=== PATIENT | female | born 2000 | race Caucasian/White ===

== ENCOUNTER 2022-02-23 12:57 | Inpatient (IN) ==
[2022-02-23 13:43] LABS: Basophils # (auto) 0.05 K/uL (0-0.2); Basophils % (auto) 0.4 %; Hematocrit (blood only) 38.2 % (37-47); Hemoglobin 13.2 g/dL (12.0-16.0); Immature Granulocytes # (auto) 0.07 K/uL (0.00-0.02); Immature Granulocytes % (auto) 0.5 %; Lymphocytes # (auto) 1.19 K/uL (1.2-3.4); Lymphocytes % (auto) 8.5 %; Mean Corpuscular Hemoglobin 31.1 pg (25-34); Mean Corpuscular Hgb Conc 34.6 g/dL (32-36); Mean Corpuscular Volume 89.9 fL (80-100); Mean Platelet Volume 10.1 fL (7.4-10.4); Monocytes # (auto) 1.79 K/uL (0.11-0.59); Monocytes % (auto) 12.7 %; Neutrophils # (auto) 10.95 K/uL (1.4-6.5); Neutrophils % (auto) 77.9 %; Platelet Count 231 K/uL (130-400); RDW Coefficient of Variation 13.1 % (11.5-14.5); RDW Standard Deviation 42.7 fL (36.4-46.3); Red Blood Count 4.25 M/uL (4.2-5.4); White Blood Count 14.05 K/uL (4.8-10.8)
--- NOTE | 2022-02-23 13:44 | XRay Report ---
SINGLE VIEW CHEST CLINICAL HISTORY: Atypical chest pain. FINDINGS: An AP, portable, upright chest radiograph is obtained. No prior studies are available for c omparison at the time of dictation. The cardiomediastinal silhouette is unremarkable. The lungs and pleural spaces are clear. No pneumothorax is seen. The bony thorax is grossly intact. IMPRESSION: No active disease in the chest. ACT 112: Negative or not required by law. Electronically signed by: Tony Islas M.D. 02/23/2022 1:43 PM
--- NOTE | 2022-02-23 13:48 | Emergency Department Note ---
Impression & Plan Myocarditis, Cough, Upper respiratory infection, Adenovirus positive by PCR ED Provider Note Any bellyNAME: MORENA BARBER AGE: 21 SEX: F : 2000 ARRIVES VIA: Walk-In INFORMANT: Patient ED PROVIDER(S): Garret Reyes DO CHIEF COMPLAINT: cough and shortness of breath HPI: Patient is a 21-year-old female who presents to the ER for upper respiratory symptoms. She notes her symptoms started about 6 days ago. She admits to a cough and congestion. She has been coughing up blood. She does have a little bit of a runny nose and a sore throat. Pain nausea, vomiting, or diarrhea. No dysuria, urgency, or frequency. Her roommate just tested positive for Covid. She is vaccinated. No other exacerbating or remitting factors. ROS: See above HPI for pertinent positives & negatives. A total of 10 systems reviewed and were otherwise negative. PAST MEDICAL HISTORY:See Below PAST SURGICAL HISTORY:See Below FAMILY HISTORY:See Below SOCIAL HISTORY:See Below HOME MEDICATIONS:See Below ALLERGIES:See Below VITALS:See Below PHYSICAL EXAMINATION: GENERAL: Sitting up in bed, alert, well appearing, well nourished, no distress, non-toxic, persistent cough EYE EXAM: normal conjunctiva. OROPHARYNX: Exudates in bilateral posterior pharynx. No obvious abscess. White plaque over top of the tongue. NECK: supple, no nuchal rigidity, no adenopathy, non-tender LUNGS: Clear to auscultation. Normal chest wall mechanics HEART: no murmurs, S1 normal and S2 normal ABDOMEN: abdomen soft, non-tender, normo-active bowel sounds, no masses, no rebound or guarding. UPPER EXTREMITIES: upper extremities are grossly normal. LOWER EXTREMITIES: No pitting edema. Calves are equal bilateral NEURO EXAM: Normal sensorium, cranial nerves II-XII grossly intact, normal spee ch, no gross weakness of arms, no gross weakness of legs. MEDICAL DECISION MAKING: Patient is a 21-year-old female who presents to ER for upper respiratory symptoms. IV was established blood was obtained. Labs show mild leukocytosis of 14,000. No significant anemia. D-dimer was negative. BMP with mild hyponatremia and hypokalemia 3.2. LFTs bilirubin was unremarkable. Troponin was elevated at 1.4. Lipase was normal. Initial antigen Covid was obtained and was negative but once the positive troponin came back did repeat PCR as her roommate is positive for Covid. With the elevated troponin I do not feel that this is ischemic but favor likely myocarditis. Strep and mono were added on. Discussed with Dr. Constance Richard. She recommended bio fire. D/w Dr. Price from cardiology and they will follow the patient up as an inpatient. CTA of the chest showed no PEs, pleural effusions or large pericardial effusion. Strep and mono were neg. adenovirus was +. Triage Nursing notes reviewed. Limited review of prior medical records performed Vital Signs: reviewed and remarkable for tachy Differential diagnosis: Differential diagnoses includes but is not limited to pneumonia, bronchitis, COPD/Asthma exacerbation, pneumothorax, pulmonary embolism, congestive heart failure, acute coronary syndrome ER treatment provided: See below Diagnostics interpreted by me: ECG: Sinus rhythm rate 85 Normal axis No PVCs QTC 423 Cardiac Monitoring: An order was placed for continuous cardiac monitoring. The m onitor shows a rate of 82 with sinus rhythm. Laboratory studies: As stated above and show below. Imaging studies: CT angio of the chest was negative Portable AP upright 1 view the chest was unremarkable Consultation(s): Discussed with Constance Richard for further evaluation Discussed with cardiology Procedures: none Critical Care: None Past Med/Surg History Social History Smoking Status: Never smoker Preferred Language: Bulgarian Feels Safe at Home: Yes Allergies Allergies Allergy/AdvReac Type Severity Reaction Status Date / Time shellfish derived Allergy Severe Difficulty Verified 02/23/22 15:36 Breathing cat dander Allergy Mild Congested Verified 02/23/22 15:36 dog dander Allergy Mild Congested Verified 02/23/22 15:36 grass pollen Allergy Mild Congested Verified 02/23/22 15:36 tree and shrub pollen Allergy Mild Congested Verified 02/23/22 15:36 Home Meds Home Medications Medication Instructions Recorded Confirmed budesonide-formoterol HFA 160 2 puff INHALATION QAM 02/23/22 02/23/22 mcg-4.5 mcg/actuation aerosol inhaler cetirizine 10 mg tablet (Zyrtec) 10 mg PO DAILY 02/23/22 02/23/22 fluconazole 100 mg tablet 100 mg PO UD 02/23/22 02/23/22 isotretinoin 40 mg capsule 40 mg PO BID 02/23/22 02/23/22 (Claravis) montelukast 10 mg tablet 10 mg PO QPM 02/23/22 02/23/22 Results & Data (ED) Vital Signs Vital Signs - 24 hr 02/23/22 13:04 02/23/22 14:00 02/23/22 14:48 Temperature 36.2 C L Temperature Source Temporal Artery Scan Pulse Rate 105 H 90 Pulse Rate [Apical] 90 85 Pulse Rhythm Regular Pulse Strength Normal Respiratory Rate 20 18 18 Respiratory Effort / Characteristics Non-Labored Spontaneous Non-Labored Spontaneous Non-Labored Spontaneous Respiratory Depth Normal Normal Normal Respiratory Pattern Regular Regular Regular Blood Pressure 118/81 Blood Pressure [Right Arm] 124/78 124/78 Blood Pressure Mean 93 Blood Pressure Mean [Right Arm] 93 93 Blood Pressure Position Sitting Blood Pressure Position [Right Arm] Sitting Sitting Pulse Oximetry 96 96 97 Oxygen Delivery Method Room Air Room Air Room Air Sepsis Recent Fever Within 48 Hours No Sepsis New/Unexplained Change in Mental Status No Sepsis Action Taken by Nursing No Action Required 02/23/22 16:00 Temperature Temperature Source Pulse Rate Pulse Rate [Apical] 93 H Pulse Rhythm Pulse Strength Respiratory Rate 18 Respiratory Effort / Characteristics Non-Labored Spontaneous Respiratory Depth Normal Respiratory Pattern Regular Blood Pressure Blood Pressure [Right Arm] 124/78 Blood Pressure Mean Blood Pressure Mean [Right Arm] 93 Blood Pressure Position Blood Pressure Position [Right Arm] Sitting Pulse Oximetry 97 Oxygen Delivery Method Room Air Sepsis Recent Fever Within 48 Hours Sepsis New/Unexplained Change in Mental Status Sepsis Action Taken by Nursing Laboratory Data Result diagrams: 02/23/22 13:30 02/23/22 13:36 Lab Results 02/23/22 02/23/22 02/23/22 Range/Units 13:30 13:30 13:30 WBC 14.05 H (4.8-10.8) K/uL RBC 4.25 (4.2-5.4) M/uL Hgb 13.2 (12.0-16.0) g/dL Hct 38.2 (37-47) % MCV 89.9 (80-100) fL MCH 31.1 (25-34) pg MCHC 34.6 (32-36) g/dL RDW Std Deviation 42.7 (36.4-46.3) fL RDW Coeff of Javier 13.1 (11.5-14.5) % Plt Count 231 (130-400) K/uL MPV 10.1 (7.4-10.4) fL Immature Gran % (Auto) 0.5 % Neut % (Auto) 77.9 % Lymph % (Auto) 8.5 % [place] % (Auto) 12.7 % Eos % (Auto) 0.0 % Baso % (Auto) 0.4 % Neut # (Auto) 10.95 H (1.4-6.5) K/uL Lymph # (Auto) 1.19 L (1.2-3.4) K/uL [place] # (Auto) 1.79 H (0.11-0.59) K/uL Eos # (Auto) 0.00 (0-0.5) K/uL Baso # (Auto) 0.05 (0-0.2) K/uL Immature Gran # (Auto) 0.07 H (0.00-0.02) K/uL D-Dimer 400 (0-500) ug/L FEU Sodium (136-145) mmol/L Potassium (3.5-5.1) mmol/L Chloride (98-107) mmol/L Carbon Dioxide (21-32) mmol/L Anion Gap (3-11) BUN (6-23) mg/dl Creatinine (0.6-1.2) mg/dl Est Cr Clr Drug Dosing ml/min Est GFR ( Amer) ml/min Est GFR (Non-Af Amer) ml/min BUN/Creatinine Ratio (10-20) Glucose (70-99(Fasting)) mg/dl Calcium (8.5-10.1) mg/dl Total Bilirubin (0.2-1.0) mg/dl AST (13-39) U/L ALT (7-52) U/L Alkaline Phosphatase (34-104) U/L Troponin I (0-0.04) ng/ml Total Protein (6.0-8.3) gm/dl Albumin (3.4-5.0) gm/dl Globulin (2.5-4.0) gm/dl Albumin/Globulin Ratio (0.9-2) Lipase (11-82) U/L Adenovirus (PCR) (NotDetected) B. pertussis DNA (PCR) (NotDetected) B.parapertussis DNA PCR (NotDetected) C. pneumoniae DNA (PCR) (NotDetected) Coronavirus OC43 (PCR) (NotDetected) Coronavirus HKU1 (PCR) (NotDetected) Coronavirus 229E (PCR) (NotDetected) SARS-CoV-2 (PCR) (Negative) Coronavirus NL63 (PCR) (NotDetected) Monoscreen (Negative) Human Metapneumovir PCR (NotDetected) Influenza Type A (PCR) (Neg) Influenza Type B (PCR) (Neg) M. pneumoniae (PCR) (NotDetected) Parainfluenza 1 (PCR) (NotDetected) Parainfluenza 2 (PCR) (NotDetected) Parainfluenza 3 (PCR) (NotDetected) Parainfluenza 4 (PCR) (NotDetected) RSV (RT-PCR) (Neg) RSV (PCR) (NotDetected) Entero/Rhino (PCR) (NotDetected) SARS-CoV-2, RNA, NAAT NEGATIVE (NEGATIVE) Group A Strep (PCR) (NotDetected) 02/23/22 02/23/22 02/23/22 Range/Units 13:30 13:36 14:26 WBC (4.8-10.8) K/uL RBC (4.2-5.4) M/uL Hgb (12.0-16.0) g/dL Hct (37-47) % MCV (80-100) fL MCH (25-34) pg MCHC (32-36) g/dL RDW Std Deviation (36.4-46.3) fL RDW Coeff of Javier (11.5-14.5) % Plt Count (130-400) K/uL MPV (7.4-10.4) fL Immature Gran % (Auto) % Neut % (Auto) % Lymph % (Auto) % [place] % (Auto) % Eos % (Auto) % Baso % (Auto) % Neut # (Auto) (1.4-6.5) K/uL Lymph # (Auto) (1.2-3.4) K/uL [place] # (Auto) (0.11-0.59) K/uL Eos # (Auto) (0-0.5) K/uL Baso # (Auto) (0-0.2) K/uL Immature Gran # (Auto) (0.00-0.02) K/uL D-Dimer (0-500) ug/L FEU Sodium 132 L (136-145) mmol/L Potassium 3.2 L (3.5-5.1) mmol/L Chloride 92 L (98-107) mmol/L Carbon Dioxide 23 (21-32) mmol/L Anion Gap 17 H (3-11) BUN 9 (6-23) mg/dl Creatinine 0.79 (0.6-1.2) mg/dl Est Cr Clr Drug Dosing 111.0 ml/min Est GFR ( Amer) 124.9 ml/min Est GFR (Non-Af Amer) 107.8 ml/min BUN/Creatinine Ratio 11.4 (10-20) Glucose 101 H (70-99(Fasting)) mg/dl Calcium 9.6 (8.5-10.1) mg/dl Total Bilirubin 0.6 (0.2-1.0) mg/dl AST 28 (13-39) U/L ALT 21 (7-52) U/L Alkaline Phosphatase 36 (34-104) U/L Troponin I 1.39 H* (0-0.04) ng/ml Total Protein 8.8 H (6.0-8.3) gm/dl Albumin 4.6 (3.4-5.0) gm/dl Globulin 4.2 H (2.5-4.0) gm/dl Albumin/Globulin Ratio 1.1 (0.9-2) Lipase 30 (11-82) U/L Adenovirus (PCR) (NotDetected) B. pertussis DNA (PCR) (NotDetected) B.parapertussis DNA PCR (NotDetected) C. pneumoniae DNA (PCR) (NotDetected) Coronavirus OC43 (PCR) (NotDetected) Coronavirus HKU1 (PCR) (NotDetected) Coronavirus 229E (PCR) (NotDetected) SARS-CoV-2 (PCR) NEGATIVE (Negative) Coronavirus NL63 (PCR) (NotDetected) Monoscreen Negative (Negative) Human Metapneumovir PCR (NotDetected) Influenza Type A (PCR) Negative (Neg) Influenza Type B (PCR) Negative (Neg) M. pneumoniae (PCR) (NotDetected) Parainfluenza 1 (PCR) (NotDetected) Parainfluenza 2 (PCR) (NotDetected) Parainfluenza 3 (PCR) (NotDetected) Parainfluenza 4 (PCR) (NotDetected) RSV (RT-PCR) Negative (Neg) RSV (PCR) (NotDetected) Entero/Rhino (PCR) (NotDetected) SARS-CoV-2, RNA, NAAT (NEGATIVE) Group A Strep (PCR) (NotDetected) 02/23/22 02/23/22 Range/Units 14:26 15:09 WBC (4.8-10.8) K/uL RBC (4.2-5.4) M/uL Hgb (12.0-16.0) g/dL Hct (37-47) % MCV (80-100) fL MCH (25-34) pg MCHC (32-36) g/dL RDW Std Deviation (36.4-46.3) fL RDW Coeff of Javier (11.5-14.5) % Plt Count (130-400) K/uL MPV (7.4-10.4) fL Immature Gran % (Auto) % Neut % (Auto) % Lymph % (Auto) % [place] % (Auto) % Eos % (Auto) % Baso % (Auto) % Neut # (Auto) (1.4-6.5) K/uL Lymph # (Auto) (1.2-3.4) K/uL [place] # (Auto) (0.11-0.59) K/uL Eos # (Auto) (0-0.5) K/uL Baso # (Auto) (0-0.2) K/uL Immature Gran # (Auto) (0.00-0.02) K/uL D-Dimer (0-500) ug/L FEU Sodium (136-145) mmol/L Potassium (3.5-5.1) mmol/L Chloride (98-107) mmol/L Carbon Dioxide (21-32) mmol/L Anion Gap (3-11) BUN (6-23) mg/dl Creatinine (0.6-1.2) mg/dl Est Cr Clr Drug Dosing ml/min Est GFR ( Amer) ml/min Est GFR (Non-Af Amer) ml/min BUN/Creatinine Ratio (10-20) Glucose (70-99(Fasting)) mg/dl Calcium (8.5-10.1) mg/dl Total Bilirubin (0.2-1.0) mg/dl AST (13-39) U/L ALT (7-52) U/L Alkaline Phosphatase (34-104) U/L Troponin I (0-0.04) ng/ml Total Protein (6.0-8.3) gm/dl Albumin (3.4-5.0) gm/dl Globulin (2.5-4.0) gm/dl Albumin/Globulin Ratio (0.9-2) Lipase (11-82) U/L Adenovirus (PCR) DETECTED A* (NotDetected) B. pertussis DNA (PCR) Not Detected (NotDetected) B.parapertussis DNA PCR Not Detected (NotDetected) C. pneumoniae DNA (PCR) Not Detected (NotDetected) Coronavirus OC43 (PCR) Not Detected (NotDetected) Coronavirus HKU1 (PCR) Not Detected (NotDetected) Coronavirus 229E (PCR) Not Detected (NotDetected) SARS-CoV-2 (PCR) Not Detected (Negative) Coronavirus NL63 (PCR) Not Detected (NotDetected) Monoscreen (Negative) Human Metapneumovir PCR Not Detected (NotDetected) Influenza Type A (PCR) Not Detected (Neg) Influenza Type B (PCR) Not Detected (Neg) M. pneumoniae (PCR) Not Detected (NotDetected) Parainfluenza 1 (PCR) Not Detected (NotDetected) Parainfluenza 2 (PCR) Not Detected (NotDetected) Parainfluenza 3 (PCR) Not Detected (NotDetected) Parainfluenza 4 (PCR) Not Detected (NotDetected) RSV (RT-PCR) (Neg) RSV (PCR) Not Detected (NotDetected) Entero/Rhino (PCR) Not Detected (NotDetected) SARS-CoV-2, RNA, NAAT (NEGATIVE) Group A Strep (PCR) NOT DETECTED (NotDetected) Administered Medications Discontinued Medications Aspirin (Aspirin Chew 324 Mg) 324 mg PO NOW STA Stop: 02/23/22 15:01 Last Admin: 02/23/22 15:06 Dose: 324 mg Documented by: [id number] Ioversol (Optiray 320 125ml) 120 ml IV ONCE ONE Stop: 02/23/22 14:42 Last Admin: 02/23/22 14:42 Dose: 120 ml Documented by: [id number] Potassium Chloride (Potassium Chloride Crtab 20 Meq Tabcr) 40 meq PO NOW STA Stop: 02/23/22 15:01 Last Admin: 02/23/22 15:06 Dose: 40 meq Documented by: [id number] Imaging Data Radiologist's Impression: Chest X-Ray 02/23/22 13:22 SINGLE VIEW CHEST CLINICAL HISTORY: Atypical chest pain. FINDINGS: An AP, portable, upright chest radiograph is obtained. No prior studies are available for comparison at the time of dictation. The cardiomediastinal silhouette is unremarkable. The lungs and pleural spaces are clear. No pneumothorax is seen. The bony thorax is grossly intact. IMPRESSION: No active disease in the chest. ACT 112: Negative or not required by law. Electronically signed by: Tony Islas M.D. 02/23/2022 1:43 PM Chest CTA 02/23/22 14:12 CT ANGIOGRAM OF THE CHEST CLINICAL HISTORY: Atypical chest pain. COMPARISON STUDY: Chest x-ray dated 02/23/2022. TECHNIQUE: Following the IV administration of 120 cc of Optiray 320, CT angiogram of the chest was performed from the upper abdomen to the thoracic inlet utilizing the pulmonary embolus protocol. Images are reviewed in the axial, sagittal, and coronal planes. 3-D MIPS images are created and assessed. IV contrast was administered without complication. A dose lowering technique was utilized adhering to the principles of ALARA. CT DOSE: 225.15 mGy.cm FINDINGS: Thyroid: Imaged portions of the thyroid gland are normal in size and atten uation. Thoracic aorta: The thoracic aorta is normal in caliber and demonstrates standard 3-vessel arch anatomy. No dissection is seen. Pulmonary vasculature: The pulmonary trunk is normal in caliber. There are no filling defects identified in main, lobar, or segmental pulmonary branches to suggest pulmonary embolus. Heart: The heart is normal in size and without pericardial effusion. Lungs and pleural spaces: The lungs and pleural spaces are clear. Mediastinum: There is no mediastinal lymphadenopathy. Gertrudis: Clear. Axillae: There is no axillary lymphadenopathy. Upper abdomen: Partially visualized upper abdominal viscera is within normal limits. Skeletal structures: No lytic or blastic bony lesions are seen. IMPRESSION: 1. There is no evidence of pulmonary embolus in the main, lobar, or segmental pulmonary arteries. 2. The lungs are clear. ACT 112: Negative or not required by law. Electronically signed by: Tony Islas M.D. 02/23/2022 2:54 PM Discharge Plan Visit Data Chief Complaint: Cough Stated Complaint: COUGH UP BLOOD, RASH ALL OVER THE BODY ED Provider: Garret Reyes Discharge Problem: Myocarditis, Cough, Upper respiratory infection, Adenovirus positive by PCR Forms Stand Alone Forms: My [facility] Prescriptions Prescriptions: No Action isotretinoin [Claravis] 40 mg capsule 40 mg PO BID RF: 0 cetirizine [Zyrtec] 10 mg Tablet 10 mg PO DAILY RF: 0 montelukast 10 mg tablet 10 mg PO QPM RF: 0 budesonide-formoterol 160-4.5 mcg/actuation HFA aerosol inhaler 2 puff INHALATION QAM RF: 0 fluconazole 100 mg tablet 100 mg PO UD RF: 0 Referrals Referrals: PCP,NO [Primary Care Provider] -
[2022-02-23 13:54] LABS: D Dimer 400 ug/L FEU (0-500)
[2022-02-23 14:13] LABS: Troponin I 1.39 ng/ml (0-0.04)
[2022-02-23 14:28] LABS: Albumin Globulin Ratio 1.1 (0.9-2); Albumin Level 4.6 gm/dl (3.4-5.0); BUN Creatinine Ratio 11.4 (10-20); Bilirubin,Total 0.6 mg/dl (0.2-1.0); Calcium 9.6 mg/dl (8.5-10.1); Est GFR (African American) 124.9 ml/min; Est GFR (Non-African American) 107.8 ml/min; Globulin 4.2 gm/dl (2.5-4.0); Potassium 3.2 mmol/L (3.5-5.1); Total Protein 8.8 gm/dl (6.0-8.3)
[2022-02-23] MEDS ORDERED: OPTIRAY 320 125ml IV ONE (14:41)
--- NOTE | 2022-02-23 14:57 | CT Scan Report ---
CT ANGIOGRAM OF THE CHEST CLINICAL HISTORY: Atypical chest pain. COMPARISON STUDY: Chest x-ray dated 02/23/2022. TECHNIQUE: Following the IV administration of 120 cc of Optiray 320, CT angiogram of the chest was pe rformed from the upper abdomen to the thoracic inlet utilizing the pulmonary embolus protocol. Images are reviewed in the axial, sagittal, and coronal planes. 3-D MIPS images are created and assessed. I V contrast was administered without complication. A dose lowering technique was utilized adhering to the principles of ALARA. CT DOSE: 225.15 mGy.cm FINDINGS: Thyroid: Imaged portions of the thyroid gland are normal in size and attenuation. Thoracic aorta: The thoracic aorta is normal in caliber and demonstrates standard 3-vessel arch anato my. No dissection is seen. Pulmonary vasculature: The pulmonary trunk is normal in caliber. There are no filling defects identif ied in main, lobar, or segmental pulmonary branches to suggest pulmonary embolus. Heart: The heart is normal in size and without pericardial effusion. Lungs and pleural spaces: The lungs and pleural spaces are clear. Mediastinum: There is no mediastinal lymphadenopathy. Gertrudis: Clear. Axillae: There is no axillary lymphadenopathy. Upper abdomen: Partially visualized upper abdominal viscera is within normal limits. Skeletal structures: No lytic or blastic bony lesions are seen. IMPRESSION: 1. There is no evidence of pulmonary embolus in the main, lobar, or segmental pulmonary arteries. 2. The lungs are clear. ACT 112: Negative or not required by law. Electronically signed by: Tony Islas M.D. 02/23/2022 2:54 PM
[2022-02-23] MEDS ORDERED: ASPIRIN CHEW 324 MG PO STA (15:00)
[2022-02-23] MEDS ORDERED: POTASSIUM CHLORIDE CRTAB 20 MEQ TABCR PO STA (15:00)
[2022-02-23 15:19] LABS: Influenza A virus by PCR Negative (Neg); Influenza B virus by PCR Negative (Neg); RSV by PCR Negative (Neg); SARS CoV2 RNA(COVID-19) InHosp NEGATIVE (Negative)
[2022-02-23 16:32] LABS: Bordetella parapertussis PCR Not Detected (NotDetected); Bordetella pertussis PCR Not Detected (NotDetected); Chlamydia pneumoniae PCR Not Detected (NotDetected); Coronavirus 229E PCR Not Detected (NotDetected); Coronavirus CoV-2 (COVID19)PCR Not Detected (NotDetected); Coronavirus HKU1 PCR Not Detected (NotDetected); Coronavirus NL63 PCR Not Detected (NotDetected); Coronavirus OC43PCR Not Detected (NotDetected); Human Metapneumovirus PCR Not Detected (NotDetected); Influenza A PCR Not Detected (NotDetected); Influenza B PCR Not Detected (NotDetected); Mycoplasma pneumoniae PCR Not Detected (NotDetected); Parainfluenza Virus 1 PCR Not Detected (NotDetected); Parainfluenza Virus 2 PCR Not Detected (NotDetected); Parainfluenza Virus 3 PCR Not Detected (NotDetected); Parainfluenza Virus 4 PCR Not Detected (NotDetected); Respiratory Syncytial VirusPCR Not Detected (NotDetected); Rhinovirus/Enterovirus PCR Not Detected (NotDetected)
[2022-02-23 16:34] LABS: Adenovirus PCR DETECTED (NotDetected)
--- NOTE | 2022-02-23 17:29 | History & Physical Report ---
Date of Service February 23, 2022 Assessment & Plan (1) Myocarditis: Plan: Viral myocarditis likely- Troponin elevation - Adenovirus on viral PCR which is a common cause of myocarditis - Follow other cultures - Hold colchicine/steroids for now as symptoms minor -Check echo -Trend troponin -Consult cardiology -Consult infectious disease given adenovirus and recent Covid exposure with the possibility of Kawasaki and MIS-C as below (2) Adenovirus positive by PCR: Plan: As above (3) Leukocytosis: Plan: WBC 14 with elevated NLR- PCT 1.06 - Blood cultures x2 - UA pending - Will cover with Unasyn for possible EENT infection - Follow biomarkers and WBC -Check throat culture (4) Upper respiratory infection: Plan: COVID test negative x2 - Biofire with Adenovirus - will place on COVID precautions secondary to close contact - Likely re-test for Covid in morning - await further viral cultures - Nebs PRN - Continue Symbicort and CARIN (5) Hyponatremia: Plan: Likely related to decrease oral intake and food intake - LR at 125ml hour - Trend in morning very minor at 132 (6) Asthma: Plan: Well controlled with Symbicort- she rarely has to use her CARIN and has been woken up 1 time in the past year to use her CARIN (7) Rash and nonspecific skin eruption: Plan: Viral mediated likely. Is present on palms and soles as well as arms and upper thighs. With some erythema and edema of the fingers and toes Also with pharyngitis and possible strawberry tongue - no meningismus signs - EOS in CBC - NONE - MIS-C questionable- dx of exclusion as well -Also question Kawasaki disease although she has not had persistent fevers for greater than 5 days so seems unlikely -Check ESR, CRP -Checking echocardiogram as above for myocarditis which would also be useful in the setting of possible Kawasaki (8) Enlarged tonsils and adenoids: Plan: As above- throat culture pending, Monospot negative, group A strep rapid test negative Secondary to adenovirus She has been taking fluconazole as an outpatient for suspected thrush-oropharynx does not appear to have thrush but can continue nystatin swish and swallow for now History of Present Illness Primary Care Provider: NO PCP 21 YOF with past medical history of: Asthma, vape user, IUD, acne. Patient is student. She comes to the EMD today for 6 day history of fevers (2 days), sinus congestion, sore throat, myalgias, nausea with vomiting and loss of appetite. The patient has a room mate that is COVID (+). Patient states that on Thursday with fevers, sore throat and "bumps on her tongue". Patient states that she will get some thrush on her tongue when she is not washing her mouth out and vaping while using her inhalers or whenever she gets sick, however this proceeded with myalgias and worsening of her nausea and vomiting. Her throat pain is sharp and "fiery feeling" and she notes pain on the underside of her jaw where her lymph nodes are. She has been having nose-bleeds over the past 3 days as well and is coughing up clotted blood tinged sputum, she has not been able to produce any sputum for inspection. The patient also noted a rash on her hands and feet over the past 2-3 days that she thought was from her fevers. This rash does not itch nor burn. The rash is flat and patchy, does not feel warm, and blanches. The patient endorses that she has had her meningococcus vaccines, MMR, and Gardasil. Last sexual contact was over a month ago and she has an IUD in place for control. In the EMD the patient had routine CXR done, CTA of the chest performed, routine labs to include Troponin I. Her Troponin I was elevated to 1.39 with normal ECG and is consistent with a myocarditis, she will be admitted for monitoring for arrhythmia, following viral work-up, ECHO in the morning. Patient COVID test is negative with NAAT and PCR- will place her on isolation precautions still as she has close contact. [employer] viral panel sent, Throat culture pending, GAS negative, Monospot with reflex EBV panel pending. Allergies Allergy/AdvReac Type Severity Reaction Status Date / Time shellfish derived Allergy Severe Difficulty Verified 02/23/22 15:36 Breathing cat dander Allergy Mild Congested Verified 02/23/22 15:36 dog dander Allergy Mild Congested Verified 02/23/22 15:36 grass pollen Allergy Mild Congested Verified 02/23/22 15:36 tree and shrub pollen Allergy Mild Congested Verified 02/23/22 15:36 Home Medications Medication Instructions Recorded Confirmed Type budesonide-formoterol HFA 160 2 puff INHALATION QAM 02/23/22 02/23/22 History mcg-4.5 mcg/actuation aerosol inhaler cetirizine 10 mg tablet (Zyrtec) 10 mg PO DAILY 02/23/22 02/23/22 History fluconazole 100 mg tablet 100 mg PO UD 02/23/22 02/23/22 History isotretinoin 40 mg capsule 40 mg PO BID 02/23/22 02/23/22 History (Claravis) levonorgestrel (Kyleena) 1 device INTRAUTERINE 02/23/22 History montelukast 10 mg tablet 10 mg PO QPM 02/23/22 02/23/22 History Past Med/Surg History Medical History Asthma Uses control Vapes non-nicotine containing substance Surgical History (Updated 02/23/22 @ 20:37 by Constance Richard MD) No pertinent past surgical history Family History Other COPD (chronic obstructive pulmonary disease) Hypertension Lung cancer Social History Smoking Status: Former smoker Cigarettes Per Day: vapes; Second Hand Exposure: No; Do You Dip or Chew Tobacco: No; Tobacco Cessation Education Requested by Patient: Yes Hx Alcohol Use: No Hx Substance Use: No Preferred Language: Polish Communication Ability: Effective 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: No Beliefs That Will Affect Care: None Current Living Situation: Other Current Living Situation Comment: off campus apartment with roommate Other Information That Helps Us Care for You: No Feels Safe at Home: Yes Safety Concerns: Feels Safe At This Time Assistive Devices: None Review of Systems Review of Systems: REVIEW OF SYSTEMS: Constitutional: (+) fever, sweats or chills Eyes: No diplopia, no worsening or blurred vision ENT: normal hearing, no trouble swallowing Respiratory: (+) cough, sputum, dyspnea rest or on exertion Cardiovascular: (+) chest pain, no tightness or palpitations Abdomen: (+) n/v, no pain, diarrhea or constipation Musculoskeletal: (+) joint pain, NO calf pain, swelling Neurologic: No weakness, numbness/tingling, or balance problems Psychiatric: No anxiety or depression Skin:(+) rash Physical Exam Physical Exam: PHYSICAL EXAM: General: awake, alert, no apparent distress Head: Normocephalic, atraumatic ENT: PERRLA, EOMI, enlarged tonsils with exudates bilaterally, red tonsils and adenoids Neuro: AAO x 3, speech clear and appropriate, strength intact bilaterally 5/5, sensation intact and equal all extremities and dermatomes, no pronator drift Chest: equal rise and fall of the chest, no accessory muscle use, no heaves or thrills, Clear to auscultation, on room air, Cardiac: Regular rate and rhythm, telemetry reviewed, skin warm dry, cap refill <3 seconds, peripheral pulses +2 no JVD, no murmur, no edema GI: NABS x 4 quadrants, soft, nontender to palpation, no rebound, guarding or tenderness : Spontaneously voiding, no pain, no CVA tenderness, Psych: Normal mood and affect Skin: salmon colored flat patch with clear borders on palms of hands, soles of feet, tops of hands, wrist and shoudler, tops of feet and bilateral hips. Abodmen/trunk/back spared, face spared. Results & Data Results & Data ([facility]) Vital Signs (Past 12 Hours) Vital Signs Temp Pulse Pulse Resp BP BP Pulse Ox 02/23/22 16:00 93 H 18 124/78 97 02/23/22 14:48 85 18 124/78 97 02/23/22 14:00 90 90 18 124/78 96 02/23/22 13:04 36.2 C L 105 H 20 118/81 96 Laboratory Results Abnormal lab results 02/23/22 02/23/22 02/23/22 Range/Units 13:30 13:36 14:26 WBC 14.05 H (4.8-10.8) K/uL Neut # (Auto) 10.95 H (1.4-6.5) K/uL Lymph # (Auto) 1.19 L (1.2-3.4) K/uL [place] # (Auto) 1.79 H (0.11-0.59) K/uL Immature Gran # (Auto) 0.07 H (0.00-0.02) K/uL Sodium 132 L (136-145) mmol/L Potassium 3.2 L (3.5-5.1) mmol/L Chloride 92 L (98-107) mmol/L Anion Gap 17 H (3-11) Glucose 101 H (70-99(Fasting)) mg/dl Troponin I 1.39 H* (0-0.04) ng/ml Total Protein 8.8 H (6.0-8.3) gm/dl Globulin 4.2 H (2.5-4.0) gm/dl Adenovirus (PCR) DETECTED A* (NotDetected) Diagnostic Findings Chest X-Ray 02/23/22 13:22 SINGLE VIEW CHEST CLINICAL HISTORY: Atypical chest pain. FINDINGS: An AP, portable, upright chest radiograph is obtained. No prior studies are available for comparison at the time of dictation. The cardiomediastinal silhouette is unremarkable. The lungs and pleural spaces are clear. No pneumothorax is seen. The bony thorax is grossly intact. IMPRESSION: No active disease in the chest. ACT 112: Negative or not required by law. Electronically signed by: Tony Islas M.D. 02/23/2022 1:43 PM Chest CTA 02/23/22 14:12 CT ANGIOGRAM OF THE CHEST CLINICAL HISTORY: Atypical chest pain. COMPARISON STUDY: Chest x-ray dated 02/23/2022. TECHNIQUE: Following the IV administration of 120 cc of Optiray 320, CT angiogram of the chest was performed from the upper abdomen to the thoracic inlet utilizing the pulmonary embolus protocol. Images are reviewed in the axial, sagittal, and coronal planes. 3-D MIPS images are created and assessed. IV contrast was administered without complication. A dose lowering technique was utilized adhering to the principles of ALARA. CT DOSE: 225.15 mGy.cm FINDINGS: Thyroid: Imaged portions of the thyroid gland are normal in size and attenuation. Thoracic aorta: The thoracic aorta is normal in caliber and demonstrates standard 3-vessel arch anatomy. No dissection is seen. Pulmonary vasculature: The pulmonary trunk is normal in caliber. There are no filling defects identified in main, lobar, or segmental pulmonary branches to suggest pulmonary embolus. Heart: The heart is normal in size and without pericardial effusion. Lungs and pleural spaces: The lungs and pleural spaces are clear. Mediastinum: There is no mediastinal lymphadenopathy. Gertrudis: Clear. Axillae: There is no axillary lymphadenopathy. Upper abdomen: Partially visualized upper abdominal viscera is within normal limits. Skeletal structures: No lytic or blastic bony lesions are seen. IMPRESSION: 1. There is no evidence of pulmonary embolus in the main, lobar, or segmental pulmonary arteries. 2. The lungs are clear. ACT 112: Negative or not required by law. Electronically signed by: Tony Islas M.D. 02/23/2022 2:54 PM Medications Administered Home Medications budesonide-formoterol HFA 160 mcg-4.5 mcg/actuation aerosol inhaler 2 puff INHALATION QAM 02/23/22 [History Confirmed 02/23/22] cetirizine 10 mg tablet (Zyrtec) 10 mg PO DAILY 02/23/22 [History Confirmed 02/23/22] fluconazole 100 mg tablet 100 mg PO UD 02/23/22 [History Confirmed 02/23/22] isotretinoin 40 mg capsule (Claravis) 40 mg PO BID 02/23/22 [History Confirmed 02/23/22] levonorgestrel (Kyleena) 1 device INTRAUTERINE 02/23/22 [History] montelukast 10 mg tablet 10 mg PO QPM 02/23/22 [History Confirmed 02/23/22] Discontinued Medications Aspirin (Aspirin Chew 324 Mg) 324 mg PO NOW STA Stop: 02/23/22 15:01 Last Admin: 02/23/22 15:06 Dose: 324 mg Documented by: [id number] Ioversol (Optiray 320 125ml) 120 ml IV ONCE ONE Stop: 02/23/22 14:42 Last Admin: 02/23/22 14:42 Dose: 120 ml Documented by: [id number] Potassium Chloride (Potassium Chloride Crtab 20 Meq Tabcr) 40 meq PO NOW STA Stop: 02/23/22 15:01 Last Admin: 02/23/22 15:06 Dose: 40 meq Documented by: [id number] ECG Additional Comments: Normal sinus rhythm Normal ECG No previous ECGs available Code Status & VTE Plan Code Status CODE: FULL VTE: SCDs, ambulation VTE Prophylaxis Plan VTE Prophylaxis will be ordered: Yes Supervising Physician Co-Signing Physician Notes HANDLE ATTACHER Supervision note: I have personally seen and examined the patient and discussed and verified the blandon points of the history and physical along with the plan with LOS Snyder with the following exceptions and/or additions: This patient is a 21-year-old female with a 6-day history of fevers, sore throat, myalgias, cough, and development of rash. Denies any chest pain or shortness of breath. Her roommate currently has Covid-19 and tested positive the day before the patient started having symptoms. In the ER, she was found to have a positive troponin, normal EKG. Also found to have a rash on her hands, feet, arms, and upper thighs Tested negative for Covid-19 but positive for adenovirus. 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 With leukocytosis and elevated procalcitonin here-question if also superimposed bacterial infection Chest x-ray is negative Urinalysis not yet collected -Admit for further evaluation of the myocarditis-trend serial troponin till peaks, follow ECG Check echocardiogram, consult cardiology Hold off on starting colchicine at this time as per my discussion with cardiology unless becomes symptomatic or troponin elevates Adenovirus could explain the pharyngitis, the rash, and the myocarditis. There is a question of if she could have Kawasaki disease, incomplete Kawasaki disease, or MIS-C although her Covid-19 test is negative at this time. She does not have conjunctivitis or persistent fevers, but if developed persistent fevers, could consider Kawasaki disease and/or MIS C and would treat with IVIG -We will consult infectious disease Follow very closely Checking echocardiogram also PG Care Time/CCT Total # of Minutes Spent Total Time Spent with Patient: Total time spent is greater than 50% in coordination of care (as documented) at patient's floor/unit and/or counseling patient: Coding Level of Care Code 47122 Initial Inpt Care Lvl 3 Diagnoses Myocarditis I40.9 Chronicity: acute Myocarditis type: unspecified Upper respiratory infection J06.9 URI type: unspecified URI Adenovirus positive by PCR B34.0 Asthma J45.909 Rash and nonspecific skin eruption R21 Hyponatremia E87.1 Enlarged tonsils and adenoids J35.3 Leukocytosis D72.829 (1) Upper respiratory infection URI type: unspecified URI Qualified Code(s): J06.9 - Acute upper respiratory infection, unspecified (2) Myocarditis Chronicity: acute Myocarditis type: unspecified Qualified Code(s): I40.9 - Acute myocarditis, unspecified
[2022-02-23] MEDS ORDERED: ALBUTEROL HFA 8 GM INHALER INH PRN (19:39)
[2022-02-23] MEDS ORDERED: ONDANSETRON 4 MG OD TAB PO PRN (19:39)
[2022-02-23] MEDS ORDERED: ALBUT/IPRATROP 3MG/0.5MG NEB 3 ML VIAL NEB PRN (19:39)
[2022-02-23] MEDS: LACTATED RINGER'S 1,000 ML IV SCH (20:33)
[2022-02-23] MEDS: ACETAMINOPHEN 325 MG TAB PO PRN (20:34)
[2022-02-23] MEDS: NYSTATIN SUSP 500,000 U/5 ML UDC PO SCH (20:34)
[2022-02-23] MEDS: AMPICILLIN/SULBACTAM SOD 1,500 MG in 0.9 % SODIUM CHLORIDE 100 ML IV SCH (22:03)
[2022-02-23] MEDS: MONTELUKAST SODIUM 10 MG TABLET PO SCH (22:03)
[2022-02-23 22:09] LABS: Appearance Urine Clear (Clear); Bacteria Urine Automated 2+ (Negative); Bilirubin Urine Negative (Negative); Blood Urine 3+ (Negative); Color Urine Dark Yellow; Epithelial Cell Urine Auto >30 /lpf (0-5); Glucose Urine UA Negative (Negative); Ketones Urine 3+ (Negative); Leukocyte Esterase Urine Negative (Negative); Nitrite Urine Negative (Negative); Protein Urine 2+ (Negative); RBC Urine Automated >30 /hpf (0-4); Specific Gravity Urine > 1.045 (1.000-1.030); Urobilinogen Urine Negative (Negative); pH Urine 5.5 (4.5-7.5)
[2022-02-23 22:29] LABS: Renal Epithelial Cells Urine 0-5 /lpf (0-5)
--- NOTE | 2022-02-23 23:28 | Communication Note ---
Date of Service: February 23, 2022 Notified about UA result. Suggestive of infection. Assessed patient. She states she has had dysuria for a day. Appropriate to continue unasyn. Vitals: 37.9C temp noted. Exam: Viral exanthem at hands and forearms, slightly fading per patient. Faint red areas, not raised. She had this rash on both upper and lower extremities, sparing trunk. Not pruritic. Tonsils enlarged w/ mild exudate. + oropharyngeal erythema. Voice is not muffled. + right anterior cervical LAD. Plan: Continue unasyn for UTI. Follow clinically and follow labs. Strep culture pending. Lai go PGY2 night resident
[2022-02-24] MEDS: AMPICILLIN/SULBACTAM SOD 1,500 MG in 0.9 % SODIUM CHLORIDE 100 ML IV SCH ×4 (01:43→19:56)
[2022-02-24] MEDS: LACTATED RINGER'S 1,000 ML IV SCH ×3 (04:00→20:28)
[2022-02-24] MEDS: NYSTATIN SUSP 500,000 U/5 ML UDC PO SCH ×4 (08:15→20:24)
[2022-02-24] MEDS: CETIRIZINE HCL 10 MG TABLET PO SCH (08:15)
[2022-02-24] MEDS: FLUTICASONE/VILANTEROL 200/25MCG 14 PUFFS/INHALER INH SCH (08:16)
[2022-02-24] MEDS: guaiFENesin SUGAR FREE 100 MG/5 ML UDC PO PRN ×2 (09:18→20:24)
[2022-02-24 10:29] LABS: Basophils # (auto) 0.02 K/uL (0-0.2); Basophils % (auto) 0.2 %; Hematocrit (blood only) 33.7 % (37-47); Hemoglobin 11.5 g/dL (12.0-16.0); Immature Granulocytes # (auto) 0.04 K/uL (0.00-0.02); Immature Granulocytes % (auto) 0.5 %; Lymphocytes # (auto) 1.58 K/uL (1.2-3.4); Lymphocytes % (auto) 18.2 %; Mean Corpuscular Hemoglobin 30.7 pg (25-34); Mean Corpuscular Hgb Conc 34.1 g/dL (32-36); Mean Corpuscular Volume 90.1 fL (80-100); Mean Platelet Volume 9.4 fL (7.4-10.4); Monocytes % (auto) 11.5 %; Neutrophils # (auto) 6.05 K/uL (1.4-6.5); Neutrophils % (auto) 69.6 %; Platelet Count 217 K/uL (130-400); RDW Coefficient of Variation 13.2 % (11.5-14.5); RDW Standard Deviation 43.4 fL (36.4-46.3); Red Blood Count 3.74 M/uL (4.2-5.4); White Blood Count 8.69 K/uL (4.8-10.8)
[2022-02-24 10:50] LABS: Alanine Aminotransferase 24 U/L (7-52); Albumin Level 3.7 gm/dl (3.4-5.0); Alkaline Phosphatase 26 U/L (34-104); Anion Gap 6 (3-11); Aspartate Aminotransferase 60 U/L (13-39); BUN Creatinine Ratio 10.5 (10-20); Bilirubin Direct 0.2 mg/dl (0-0.2); Bilirubin,Total 0.4 mg/dl (0.2-1.0); Blood Urea Nitrogen 6 mg/dl (6-23); Calcium 8.7 mg/dl (8.5-10.1); Carbon Dioxide 31 mmol/L (21-32); Chloride 97 mmol/L (98-107); Creatinine Clr Calc Pharmacy 149.4 ml/min; Est GFR (African American) > 150.0 ml/min; Est GFR (Non-African American) 133.5 ml/min; Glucose 135 mg/dl (70-99(Fasting)); Magnesium 2.1 mg/dl (1.7-2.4); Sodium 134 mmol/L (136-145); Troponin I 9.68 ng/ml (0-0.04)
--- NOTE | 2022-02-24 12:07 | XCELERA ---
[id number] \\[id number]
[2022-02-24 12:26] LABS: Pregnancy Test, Urine Negative (Negative)
[2022-02-24] MEDS ORDERED: COLCHICINE 0.6 MG TAB PO ONE (14:50)
--- NOTE | 2022-02-24 15:00 | Hospitalist Progress Note ---
Date of Service February 24, 2022 Assessment & Plan (1) Myocarditis: Plan: Viral myocarditis likely responsible for her clinical presentation - Adenovirus on viral PCR which is a common cause of myocarditis - Follow other cultures - Placed on chlochicine and ASA by cardiology, appreciate recs -2 D ECHO was essentially normal, will repeat in a few days according to cardiology --Consult infectious disease given adenovirus and recent Covid exposure with the possibility of Kawasaki and MIS-C as below (2) Adenovirus positive by PCR: Plan: As above (3) Leukocytosis: Plan: now resolved (4) Upper respiratory infection: Plan: COVID test negative x2 - Biofire with Adenovirus - will place on COVID precautions secondary to close contact - Likely re-test for Covid in morning - await further viral cultures - Nebs PRN - Continue Symbicort and CARIN (5) Hyponatremia: Plan: Likely related to decrease oral intake and food intake - LR at 125ml hour - Trend in morning very minor at 132 (6) Asthma: Plan: Well controlled with Symbicort- she rarely has to use her CARIN and has been woken up 1 time in the past year to use her CARIN (7) Rash and nonspecific skin eruption: Plan: Viral mediated likely. Is present on palms and soles as well as arms and upper thighs. With some erythema and edema of the fingers and toes Also with pharyngitis and possible strawberry tongue - no meningismus signs - EOS in CBC - NONE - MIS-C questionable- dx of exclusion as well -Also question Kawasaki disease although she has not had persistent fevers for greater than 5 days so seems unlikely -Check ESR, CRP -Checking echocardiogram as above for myocarditis which would also be useful in the setting of possible Kawasaki (8) Enlarged tonsils and adenoids: Plan: As above- throat culture pending, Monospot negative, group A strep rapid test negative Secondary to adenovirus She has been taking fluconazole as an outpatient for suspected thrush-oropharynx does not appear to have thrush but can continue nystatin swish and swallow for now (9) Engages in vaping: Plan: patient was adviced to stop Admission and Anticipated Discharge Date Admission Date: February 23, 2022 Subjective patient seen and examined today, still coughing Review of Systems Review of Systems: All systems reviewed are negative, apart from the ones contained in the history. Physical Exam Physical Exam: The patient is awake, alert and oriented 3, well developed and well nourished, normocephalic and atraumatic, lying in bed and in no acute distress. HEENT--PERRL, EOMI, mucous membranes and oropharynx mildly dry Neck--supple. No JVD. No bruits. Thyroid normal, trachea midline, no adenopathy. Heart--normal S1 and S2. No murmurs, rubs or gallops. Lungs--clear bilaterally, no respiratory distress, no accessory muscle use. Abdomen--normal bowel sounds and soft. Mild epigastric and left sided abdominal pain Extremities--no cyanosis or clubbing. No edema. Dermatologic--normal skin turgor, normal color, no abnormal lymph nodes, no rash. Neurologic--cranial nerves II through XII grossly intact. Rheumatologic--normal range of motion. Psychiatric--normal affect. Results & Data Results & Data ([facility]) Vital Signs (Past 12 Hours) Vital Signs Temp Pulse Pulse Resp BP Pulse Ox 02/24/22 12:31 98.5 F 103 H 22 116/74 95 02/24/22 07:00 112 H 02/24/22 03:43 99.1 F 101 H 18 112/69 94 Laboratory Results Laboratory Results - last 24 hr 02/23/22 02/23/22 02/23/22 13:30 13:30 13:30 WBC RBC Hgb Hct MCV MCH MCHC RDW Std Deviation RDW Coeff of Javier Plt Count MPV Immature Gran % (Auto) Neut % (Auto) Lymph % (Auto) Howard % (Auto) Eos % (Auto) Baso % (Auto) Neut # (Auto) Lymph # (Auto) Howard # (Auto) Eos # (Auto) Baso # (Auto) Immature Gran # (Auto) ESR Sodium Potassium Chloride Carbon Dioxide Anion Gap BUN Creatinine Est Cr Clr Drug Dosing Est GFR ( Amer) Est GFR (Non-Af Amer) BUN/Creatinine Ratio Glucose Calcium Magnesium Total Bilirubin Direct Bilirubin AST ALT Alkaline Phosphatase Troponin I C-Reactive Protein Total Protein Albumin Procalcitonin 1.06 H Urine Color Urine Appearance Urine pH Ur Specific [place] Urine Protein Urine Glucose (UA) Urine Ketones Urine Blood Urine Nitrite Urine Bilirubin Urine Urobilinogen Ur Leukocyte Esterase Urine WBC (Auto) Urine RBC (Auto) U Hyaline Cast (Auto) U Epithel Cells (Auto) Urine Bacteria (Auto) Ur Renal Epithelial Cell Urine Yeast Urine Test Adenovirus (PCR) B. pertussis DNA (PCR) B.parapertussis DNA PCR C. pneumoniae DNA (PCR) Coronavirus OC43 (PCR) Coronavirus HKU1 (PCR) Coronavirus 229E (PCR) SARS-CoV-2 (PCR) Coronavirus NL63 (PCR) EBV Capsid Ag IgG Ab Pending EBV Capsid Ag IgM Ab Pending EBV EA Restrict+Diffuse Pending EBV Nuclear Antigen Ab Pending EBV Antibody Interp Pending Monoscreen Negative Human Metapneumovir PCR Influenza Type A (PCR) Influenza Type B (PCR) M. pneumoniae (PCR) Parainfluenza 1 (PCR) Parainfluenza 2 (PCR) Parainfluenza 3 (PCR) Parainfluenza 4 (PCR) RSV (RT-PCR) RSV (PCR) Entero/Rhino (PCR) Group A Strep (PCR) 02/23/22 02/23/22 02/23/22 13:30 13:36 14:26 WBC RBC Hgb Hct MCV MCH MCHC RDW Std Deviation RDW Coeff of Javier Plt Count MPV Immature Gran % (Auto) Neut % (Auto) Lymph % (Auto) Howard % (Auto) Eos % (Auto) Baso % (Auto) Neut # (Auto) Lymph # (Auto) Howard # (Auto) Eos # (Auto) Baso # (Auto) Immature Gran # (Auto) ESR 84 H Sodium Potassium Chloride Carbon Dioxide Anion Gap BUN Creatinine Est Cr Clr Drug Dosing Est GFR ( Amer) Est GFR (Non-Af Amer) BUN/Creatinine Ratio Glucose Calcium Magnesium Total Bilirubin Direct Bilirubin AST ALT Alkaline Phosphatase Troponin I C-Reactive Protein 15.82 H Total Protein Albumin Procalcitonin Urine Color Urine Appearance Urine pH Ur Specific [place] Urine Protein Urine Glucose (UA) Urine Ketones Urine Blood Urine Nitrite Urine Bilirubin Urine Urobilinogen Ur Leukocyte Esterase Urine WBC (Auto) Urine RBC (Auto) U Hyaline Cast (Auto) U Epithel Cells (Auto) Urine Bacteria (Auto) Ur Renal Epithelial Cell Urine Yeast Urine Test Adenovirus (PCR) B. pertussis DNA (PCR) B.parapertussis DNA PCR C. pneumoniae DNA (PCR) Coronavirus OC43 (PCR) Coronavirus HKU1 (PCR) Coronavirus 229E (PCR) SARS-CoV-2 (PCR) NEGATIVE Coronavirus NL63 (PCR) EBV Capsid Ag IgG Ab EBV Capsid Ag IgM Ab EBV EA Restrict+Diffuse EBV Nuclear Antigen Ab EBV Antibody Interp Monoscreen Human Metapneumovir PCR Influenza Type A (PCR) Negative Influenza Type B (PCR) Negative M. pneumoniae (PCR) Parainfluenza 1 (PCR) Parainfluenza 2 (PCR) Parainfluenza 3 (PCR) Parainfluenza 4 (PCR) RSV (RT-PCR) Negative RSV (PCR) Entero/Rhino (PCR) Group A Strep (PCR) 02/23/22 02/23/22 02/23/22 14:26 15:09 19:55 WBC RBC Hgb Hct MCV MCH MCHC RDW Std Deviation RDW Coeff of Javier Plt Count MPV Immature Gran % (Auto) Neut % (Auto) Lymph % (Auto) Howard % (Auto) Eos % (Auto) Baso % (Auto) Neut # (Auto) Lymph # (Auto) Howard # (Auto) Eos # (Auto) Baso # (Auto) Immature Gran # (Auto) ESR Sodium Potassium Chloride Carbon Dioxide Anion Gap BUN Creatinine Est Cr Clr Drug Dosing Est GFR ( Amer) Est GFR (Non-Af Amer) BUN/Creatinine Ratio Glucose Calcium Magnesium Total Bilirubin Direct Bilirubin AST ALT Alkaline Phosphatase Troponin I 1.14 H* C-Reactive Protein Total Protein Albumin Procalcitonin Urine Color Urine Appearance Urine pH Ur Specific [place] Urine Protein Urine Glucose (UA) Urine Ketones Urine Blood Urine Nitrite Urine Bilirubin Urine Urobilinogen Ur Leukocyte Esterase Urine WBC (Auto) Urine RBC (Auto) U Hyaline Cast (Auto) U Epithel Cells (Auto) Urine Bacteria (Auto) Ur Renal Epithelial Cell Urine Yeast Urine Test Adenovirus (PCR) DETECTED A* B. pertussis DNA (PCR) Not Detected B.parapertussis DNA PCR Not Detected C. pneumoniae DNA (PCR) Not Detected Coronavirus OC43 (PCR) Not Detected Coronavirus HKU1 (PCR) Not Detected Coronavirus 229E (PCR) Not Detected SARS-CoV-2 (PCR) Not Detected Coronavirus NL63 (PCR) Not Detected EBV Capsid Ag IgG Ab EBV Capsid Ag IgM Ab EBV EA Restrict+Diffuse EBV Nuclear Antigen Ab EBV Antibody Interp Monoscreen Human Metapneumovir PCR Not Detected Influenza Type A (PCR) Not Detected Influenza Type B (PCR) Not Detected M. pneumoniae (PCR) Not Detected Parainfluenza 1 (PCR) Not Detected Parainfluenza 2 (PCR) Not Detected Parainfluenza 3 (PCR) Not Detected Parainfluenza 4 (PCR) Not Detected RSV (RT-PCR) RSV (PCR) Not Detected Entero/Rhino (PCR) Not Detected Group A Strep (PCR) NOT DETECTED 02/23/22 02/24/22 02/24/22 21:25 10:06 10:06 WBC 8.69 RBC 3.74 L Hgb 11.5 L Hct 33.7 L MCV 90.1 MCH 30.7 MCHC 34.1 RDW Std Deviation 43.4 RDW Coeff of Javier 13.2 Plt Count 217 MPV 9.4 Immature Gran % (Auto) 0.5 Neut % (Auto) 69.6 Lymph % (Auto) 18.2 Howard % (Auto) 11.5 Eos % (Auto) 0.0 Baso % (Auto) 0.2 Neut # (Auto) 6.05 Lymph # (Auto) 1.58 Howard # (Auto) 1.00 H Eos # (Auto) 0.00 Baso # (Auto) 0.02 Immature Gran # (Auto) 0.04 H ESR Sodium 134 L Potassium 4.0 D Chloride 97 L Carbon Dioxide 31 Anion Gap 6 BUN 6 Creatinine 0.57 L Est Cr Clr Drug Dosing 149.4 Est GFR ( Amer) > 150.0 Est GFR (Non-Af Amer) 133.5 BUN/Creatinine Ratio 10.5 Glucose 135 H Calcium 8.7 Magnesium 2.1 Total Bilirubin 0.4 Direct Bilirubin 0.2 AST 60 H ALT 24 Alkaline Phosphatase 26 L Troponin I 9.68 H* C-Reactive Protein Total Protein 7.0 D Albumin 3.7 Procalcitonin Urine Color Dark Yellow Urine Appearance Clear Urine pH 5.5 Ur Specific [place] > 1.045 H Urine Protein 2+ H Urine Glucose (UA) Negative Urine Ketones 3+ H Urine Blood 3+ H Urine Nitrite Negative Urine Bilirubin Negative Urine Urobilinogen Negative Ur Leukocyte Esterase Negative Urine WBC (Auto) 10-30 H Urine RBC (Auto) >30 H U Hyaline Cast (Auto) 5-10 H U Epithel Cells (Auto) >30 H Urine Bacteria (Auto) 2+ H Ur Renal Epithelial Cell 0-5 Urine Yeast Present A Urine Test Adenovirus (PCR) B. pertussis DNA (PCR) B.parapertussis DNA PCR C. pneumoniae DNA (PCR) Coronavirus OC43 (PCR) Coronavirus HKU1 (PCR) Coronavirus 229E (PCR) SARS-CoV-2 (PCR) Coronavirus NL63 (PCR) EBV Capsid Ag IgG Ab EBV Capsid Ag IgM Ab EBV EA Restrict+Diffuse EBV Nuclear Antigen Ab EBV Antibody Interp Monoscreen Human Metapneumovir PCR Influenza Type A (PCR) Influenza Type B (PCR) M. pneumoniae (PCR) Parainfluenza 1 (PCR) Parainfluenza 2 (PCR) Parainfluenza 3 (PCR) Parainfluenza 4 (PCR) RSV (RT-PCR) RSV (PCR) Entero/Rhino (PCR) Group A Strep (PCR) 02/24/22 02/24/22 10:06 Unknown WBC RBC Hgb Hct MCV MCH MCHC RDW Std Deviation RDW Coeff of Javier Plt Count MPV Immature Gran % (Auto) Neut % (Auto) Lymph % (Auto) Howard % (Auto) Eos % (Auto) Baso % (Auto) Neut # (Auto) Lymph # (Auto) Howard # (Auto) Eos # (Auto) Baso # (Auto) Immature Gran # (Auto) ESR Sodium Potassium Chloride Carbon Dioxide Anion Gap BUN Creatinine Est Cr Clr Drug Dosing Est GFR ( Amer) Est GFR (Non-Af Amer) BUN/Creatinine Ratio Glucose Calcium Magnesium Total Bilirubin Direct Bilirubin AST ALT Alkaline Phosphatase Troponin I C-Reactive Protein Total Protein Albumin Procalcitonin 0.76 H Urine Color Urine Appearance Urine pH Ur Specific [place] Urine Protein Urine Glucose (UA) Urine Ketones Urine Blood Urine Nitrite Urine Bilirubin Urine Urobilinogen Ur Leukocyte Esterase Urine WBC (Auto) Urine RBC (Auto) U Hyaline Cast (Auto) U Epithel Cells (Auto) Urine Bacteria (Auto) Ur Renal Epithelial Cell Urine Yeast Urine Test Negative Adenovirus (PCR) B. pertussis DNA (PCR) B.parapertussis DNA PCR C. pneumoniae DNA (PCR) Coronavirus OC43 (PCR) Coronavirus HKU1 (PCR) Coronavirus 229E (PCR) SARS-CoV-2 (PCR) Coronavirus NL63 (PCR) EBV Capsid Ag IgG Ab EBV Capsid Ag IgM Ab EBV EA Restrict+Diffuse EBV Nuclear Antigen Ab EBV Antibody Interp Monoscreen Human Metapneumovir PCR Influenza Type A (PCR) Influenza Type B (PCR) M. pneumoniae (PCR) Parainfluenza 1 (PCR) Parainfluenza 2 (PCR) Parainfluenza 3 (PCR) Parainfluenza 4 (PCR) RSV (RT-PCR) RSV (PCR) Entero/Rhino (PCR) Group A Strep (PCR) PG Care Time/CCT Total # of Minutes Spent Total Time Spent with Patient: Total time spent is greater than 50% in coordination of care (as documented) at patient's floor/unit and/or counseling patient: Coding Level of Care Code 12833 Subseq Hosp Care Lvl 2 Diagnoses Myocarditis I40.9 Chronicity: acute Myocarditis type: unspecified Adenovirus positive by PCR B34.0 Leukocytosis D72.829 Upper respiratory infection J06.9 URI type: unspecified URI Hyponatremia E87.1 Asthma J45.909 Rash and nonspecific skin eruption R21 Enlarged tonsils and adenoids J35.3 Engages in vaping Z72.89 Time Spent (min) 35 (1) Myocarditis Chronicity: acute Myocarditis type: unspecified Qualified Code(s): I40.9 - Acute myocarditis, unspecified (2) Upper respiratory infection URI type: unspecified URI Qualified Code(s): J06.9 - Acute upper respiratory infection, unspecified
--- NOTE | 2022-02-24 15:07 | Cardiology Consultation ---
Date of Consultation February 24, 2022 Assessment & Plan (1) Acute myopericarditis: (2) Adenovirus positive by PCR: (3) Hyponatremia: (4) Sinus tachycardia: (5) Engages in vaping: ASSESSMENT/PLAN: 1. Acute myopericarditis: We discussed the diagnosis. Elevated troponins and chest discomfort highly suggestive of pericardial inflammation. Due to the pain, recommend treatment with aspirin 325 mg twice daily, which can be discontinue if pain subsides and then used on an as-needed basis. Start colchicine 0.6 mg p.o. once daily and would continue for a 3 month course to help reduce risk of recurrence. Fortunately, LV systolic function was normal on echo. Recommend repeating limited echo to evaluate wall motion and LV systolic function prior to discharge. Could consider cardiac MRI, especially if LV systolic dysfunction occurs, but otherwise it would not be expected to alter ma nagement. Cardiac MRI is not available at this facility but could be arranged if needed. Ordered troponin to ensure peak. Recommend avoiding exercise, other than walking, for 3 months. 2. Sinus tachycardia: Likely due to her active infection. Continue telemetry to monitor for arrhythmia, especially in the setting of myocardial injury. No specific treatment necessary for sinus tachycardia at this point. She remains asymptomatic in this regard. She also was likely hypovolemic on presentation based on her history with GI fluid loss, decreased oral intake, and orthostatic symptoms. She has received IV fluids and now tolerating oral intake. She appears more euvolemic currently. 3. Vaping: Recommended that she stop vaping. She seems dedicated to cessation. 4. Hyponatremia: Improving. Likely due to her underlying illness. Defer to hospitalist team. 5. Fever/Adenovirus positive/positive throat culture/possible UTI: As per primary service. She has tested negative for COVID-19 thus far but had recent contact in the form of her roommate who tested positive for COVID-19. Infectious disease consultation is pending. Defer to ID and hospitalist service. Currently on antibiotics per hospitalist. Also discussed with hospitalist epistaxis/hemoptysis, which was reported by patient. 6. Disposition: Cardiology will continue to follow. Discussed case via telephone with primary hospitalist, Dr. Markham. Thank you for allowing me to participate in the care of your patient. Please call for any other questions or concerns. Sincerely, Tio Veronica M.D. History of Present Illness Reason for Consultation: Myocarditis Requesting Physician: Dr. Richard Attending Physician: Pro Markham MD History of Present Illness Ms. Mckeon is a very pleasant 21-year-old female with a history significant for asthma. She was admitted on 02/23/2022 after feeling ill for approximately 1 week. She has been experiencing fevers, sore throat, nausea, vomiting, diarrhea, congestion, and cough with bloody sputum. She has been experiencing orthostatic symptoms when getting up from a seated or supine position. She has not been eating much but was trying to keep up with fluids. She also had a rash which has subsided. She states that her sore throat is more significant today than has been and she has noted a swollen lymph node on the right side of her neck just beneath the jawline. She also has been experiencing a pain across her chest which is worse while laying supine, improves while sitting upright, and also pleuritic in nature. During our conversation, she denied any chest discomfort however upon deep inspiration, the chest pain would recur. She denies shortness of breath, orthopnea, palpitations, syncope, melena, hematochezia, or hematuria. She has been experiencing dysuria but states that she has had issues with recurrent UTI in the past. Her roommate has tested positive with COVID-19 infection, although testing for her has been negative in that regard. She was found to have leukocytosis on presentation, hyponatremia, elevated troponin initially 1.39 before trending slightly downward and then increasing to 9.68 this morning, elevated procalcitonin, adenovirus noted on PCR, and group G beta strep on throat culture. Although some of her symptoms have improved as she is no longer vomiting and states that today is the first day that she has not had a fever since onset, her throat pain has worsened. Her father joined in via speaker phone near the end of our visit and mentioned that she has had 2 similar episodes recently in the past year or so. He also stated that lung issues run in the family, although no significant cardiac issues. Review of systems: As above. Review of systems otherwise negative/unremarkable. Family history: No known premature CAD. There has been pulmonary issues within her family. Social history: She vapes. No significant alcohol or drug abuse. 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 Her mother and father (interactive media marketing specialist) live in [place]. She is not and has no children. Her father participated at the end of today's visit via speaker phone. Allergies Allergy/AdvReac Type Severity Reaction Status Date / Time shellfish derived Allergy Severe Difficulty Verified 02/23/22 15:36 Breathing cat dander Allergy Mild Congested Verified 02/23/22 15:36 dog dander Allergy Mild Congested Verified 02/23/22 15:36 grass pollen Allergy Mild Congested Verified 02/23/22 15:36 tree and shrub pollen Allergy Mild Congested Verified 02/23/22 15:36 Home Medications Medication Instructions Recorded Confirmed Type budesonide-formoterol HFA 160 2 puff INHALATION QAM 02/23/22 02/23/22 History mcg-4.5 mcg/actuation aerosol inhaler cetirizine 10 mg tablet (Zyrtec) 10 mg PO DAILY 02/23/22 02/23/22 History fluconazole 100 mg tablet 100 mg PO UD 02/23/22 02/23/22 History isotretinoin 40 mg capsule 40 mg PO BID 02/23/22 02/23/22 History (Claravis) levonorgestrel (Kyleena) 1 device INTRAUTERINE 02/23/22 History montelukast 10 mg tablet 10 mg PO QPM 02/23/22 02/23/22 History Patient History Medical History Asthma Uses control Vapes non-nicotine containing substance Surgical History (Updated 02/23/22 @ 20:37 by Constance Richard MD) No pertinent past surgical history Family History Other COPD (chronic obstructive pulmonary disease) Hypertension Lung cancer Social History Smoking Status: Former smoker Cigarettes Per Day: vapes; Second Hand Exposure: No; Do You Dip or Chew Tobacco: No; Tobacco Cessation Education Requested by Patient: Yes Hx Alcohol Use: No Hx Substance Use: No Preferred Language: Spanish Communication Ability: Effective Pta Required: No Beliefs That Will Affect Care: None Current Living Situation: Other Current Living Situation Comment: off campus apartment with roommate Other Information That Helps Us Care for You: No Feels Safe at Home: Yes Safety Concerns: Feels Safe At This Time Assistive Devices: None Physical Exam Physical Exam: Gen.: No acute distress. Alert and oriented. HEENT: Anicteric sclera. Neck: No JVD. No bruits. Normal carotid upstrokes bilaterally. Lymphadenopathy noted right neck, just below the jawline. Cardiac: PMI was nondisplaced. No ventricular heave. Regular. Heart rate near 100 beats per minute. Normal S1-S2. No murmurs, rubs, or gallops. Pulmonary: Clear to auscultation bilaterally without wheezes, rales, or rhonchi. Abdomen: Soft, nontender, nondistended, with normoactive bowel sounds. No bruits noted. Extremities: 2+ radial pulses bilaterally. 2+ posterior tibialis pulses bilaterally. No edema or cyanosis. Psychiatric: Affect appears appropriate. Chest: Nontender to palpation. Results & Data ([facility]) Vital Signs (Past 12 Hours) Vital Signs Temp Pulse Pulse Resp BP Pulse Ox 02/24/22 12:31 36.9 C 103 H 22 116/74 95 02/24/22 07:00 112 H 02/24/22 03:43 37.3 C 101 H 18 112/69 94 Laboratory Results Laboratory Results - last 24 hr 02/23/22 02/23/22 02/23/22 13:30 13:30 13:30 WBC RBC Hgb Hct MCV MCH MCHC RDW Std Deviation RDW Coeff of Javier Plt Count MPV Immature Gran % (Auto) Neut % (Auto) Lymph % (Auto) Deuel % (Auto) Eos % (Auto) Baso % (Auto) Neut # (Auto) Lymph # (Auto) Deuel # (Auto) Eos # (Auto) Baso # (Auto) Immature Gran # (Auto) ESR Sodium Potassium Chloride Carbon Dioxide Anion Gap BUN Creatinine Est Cr Clr Drug Dosing Est GFR ( Amer) Est GFR (Non-Af Amer) BUN/Creatinine Ratio Glucose Calcium Magnesium Total Bilirubin Direct Bilirubin AST ALT Alkaline Phosphatase Troponin I C-Reactive Protein Total Protein Albumin Procalcitonin 1.06 H Urine Color Urine Appearance Urine pH Ur Specific [place] Urine Protein Urine Glucose (UA) Urine Ketones Urine Blood Urine Nitrite Urine Bilirubin Urine Urobilinogen Ur Leukocyte Esterase Urine WBC (Auto) Urine RBC (Auto) U Hyaline Cast (Auto) U Epithel Cells (Auto) Urine Bacteria (Auto) Ur Renal Epithelial Cell Urine Yeast Urine Test Adenovirus (PCR) B. pertussis DNA (PCR) B.parapertussis DNA PCR C. pneumoniae DNA (PCR) Coronavirus OC43 (PCR) Coronavirus HKU1 (PCR) Coronavirus 229E (PCR) SARS-CoV-2 (PCR) Coronavirus NL63 (PCR) EBV Capsid Ag IgG Ab Pending EBV Capsid Ag IgM Ab Pending EBV EA Restrict+Diffuse Pending EBV Nuclear Antigen Ab Pending EBV Antibody Interp Pending Monoscreen Negative Human Metapneumovir PCR Influenza Type A (PCR) Influenza Type B (PCR) M. pneumoniae (PCR) Parainfluenza 1 (PCR) Parainfluenza 2 (PCR) Parainfluenza 3 (PCR) Parainfluenza 4 (PCR) RSV (RT-PCR) RSV (PCR) Entero/Rhino (PCR) Group A Strep (PCR) 02/23/22 02/23/22 02/23/22 13:30 13:36 14:26 WBC RBC Hgb Hct MCV MCH MCHC RDW Std Deviation RDW Coeff of Javier Plt Count MPV Immature Gran % (Auto) Neut % (Auto) Lymph % (Auto) Deuel % (Auto) Eos % (Auto) Baso % (Auto) Neut # (Auto) Lymph # (Auto) Deuel # (Auto) Eos # (Auto) Baso # (Auto) Immature Gran # (Auto) ESR 84 H Sodium Potassium Chloride Carbon Dioxide Anion Gap BUN Creatinine Est Cr Clr Drug Dosing Est GFR ( Amer) Est GFR (Non-Af Amer) BUN/Creatinine Ratio Glucose Calcium Magnesium Total Bilirubin Direct Bilirubin AST ALT Alkaline Phosphatase Troponin I C-Reactive Protein 15.82 H Total Protein Albumin Procalcitonin Urine Color Urine Appearance Urine pH Ur Specific [place] Urine Protein Urine Glucose (UA) Urine Ketones Urine Blood Urine Nitrite Urine Bilirubin Urine Urobilinogen Ur Leukocyte Esterase Urine WBC (Auto) Urine RBC (Auto) U Hyaline Cast (Auto) U Epithel Cells (Auto) Urine Bacteria (Auto) Ur Renal Epithelial Cell Urine Yeast Urine Test Adenovirus (PCR) B. pertussis DNA (PCR) B.parapertussis DNA PCR C. pneumoniae DNA (PCR) Coronavirus OC43 (PCR) Coronavirus HKU1 (PCR) Coronavirus 229E (PCR) SARS-CoV-2 (PCR) NEGATIVE Coronavirus NL63 (PCR) EBV Capsid Ag IgG Ab EBV Capsid Ag IgM Ab EBV EA Restrict+Diffuse EBV Nuclear Antigen Ab EBV Antibody Interp Monoscreen Human Metapneumovir PCR Influenza Type A (PCR) Negative Influenza Type B (PCR) Negative M. pneumoniae (PCR) Parainfluenza 1 (PCR) Parainfluenza 2 (PCR) Parainfluenza 3 (PCR) Parainfluenza 4 (PCR) RSV (RT-PCR) Negative RSV (PCR) Entero/Rhino (PCR) Group A Strep (PCR) 02/23/22 02/23/22 02/23/22 14:26 15:09 19:55 WBC RBC Hgb Hct MCV MCH MCHC RDW Std Deviation RDW Coeff of Javier Plt Count MPV Immature Gran % (Auto) Neut % (Auto) Lymph % (Auto) Deuel % (Auto) Eos % (Auto) Baso % (Auto) Neut # (Auto) Lymph # (Auto) Deuel # (Auto) Eos # (Auto) Baso # (Auto) Immature Gran # (Auto) ESR Sodium Potassium Chloride Carbon Dioxide Anion Gap BUN Creatinine Est Cr Clr Drug Dosing Est GFR ( Amer) Est GFR (Non-Af Amer) BUN/Creatinine Ratio Glucose Calcium Magnesium Total Bilirubin Direct Bilirubin AST ALT Alkaline Phosphatase Troponin I 1.14 H* C-Reactive Protein Total Protein Albumin Procalcitonin Urine Color Urine Appearance Urine pH Ur Specific [place] Urine Protein Urine Glucose (UA) Urine Ketones Urine Blood Urine Nitrite Urine Bilirubin Urine Urobilinogen Ur Leukocyte Esterase Urine WBC (Auto) Urine RBC (Auto) U Hyaline Cast (Auto) U Epithel Cells (Auto) Urine Bacteria (Auto) Ur Renal Epithelial Cell Urine Yeast Urine Test Adenovirus (PCR) DETECTED A* B. pertussis DNA (PCR) Not Detected B.parapertussis DNA PCR Not Detected C. pneumoniae DNA (PCR) Not Detected Coronavirus OC43 (PCR) Not Detected Coronavirus HKU1 (PCR) Not Detected Coronavirus 229E (PCR) Not Detected SARS-CoV-2 (PCR) Not Detected Coronavirus NL63 (PCR) Not Detected EBV Capsid Ag IgG Ab EBV Capsid Ag IgM Ab EBV EA Restrict+Diffuse EBV Nuclear Antigen Ab EBV Antibody Interp Monoscreen Human Metapneumovir PCR Not Detected Influenza Type A (PCR) Not Detected Influenza Type B (PCR) Not Detected M. pneumoniae (PCR) Not Detected Parainfluenza 1 (PCR) Not Detected Parainfluenza 2 (PCR) Not Detected Parainfluenza 3 (PCR) Not Detected Parainfluenza 4 (PCR) Not Detected RSV (RT-PCR) RSV (PCR) Not Detected Entero/Rhino (PCR) Not Detected Group A Strep (PCR) NOT DETECTED 02/23/22 02/24/22 02/24/22 21:25 10:06 10:06 WBC 8.69 RBC 3.74 L Hgb 11.5 L Hct 33.7 L MCV 90.1 MCH 30.7 MCHC 34.1 RDW Std Deviation 43.4 RDW Coeff of Javier 13.2 Plt Count 217 MPV 9.4 Immature Gran % (Auto) 0.5 Neut % (Auto) 69.6 Lymph % (Auto) 18.2 Deuel % (Auto) 11.5 Eos % (Auto) 0.0 Baso % (Auto) 0.2 Neut # (Auto) 6.05 Lymph # (Auto) 1.58 Deuel # (Auto) 1.00 H Eos # (Auto) 0.00 Baso # (Auto) 0.02 Immature Gran # (Auto) 0.04 H ESR Sodium 134 L Potassium 4.0 D Chloride 97 L Carbon Dioxide 31 Anion Gap 6 BUN 6 Creatinine 0.57 L Est Cr Clr Drug Dosing 149.4 Est GFR ( Amer) > 150.0 Est GFR (Non-Af Amer) 133.5 BUN/Creatinine Ratio 10.5 Glucose 135 H Calcium 8.7 Magnesium 2.1 Total Bilirubin 0.4 Direct Bilirubin 0.2 AST 60 H ALT 24 Alkaline Phosphatase 26 L Troponin I 9.68 H* C-Reactive Protein Total Protein 7.0 D Albumin 3.7 Procalcitonin Urine Color Dark Yellow Urine Appearance Clear Urine pH 5.5 Ur Specific [place] > 1.045 H Urine Protein 2+ H Urine Glucose (UA) Negative Urine Ketones 3+ H Urine Blood 3+ H Urine Nitrite Negative Urine Bilirubin Negative Urine Urobilinogen Negative Ur Leukocyte Esterase Negative Urine WBC (Auto) 10-30 H Urine RBC (Auto) >30 H U Hyaline Cast (Auto) 5-10 H U Epithel Cells (Auto) >30 H Urine Bacteria (Auto) 2+ H Ur Renal Epithelial Cell 0-5 Urine Yeast Present A Urine Test Adenovirus (PCR) B. pertussis DNA (PCR) B.parapertussis DNA PCR C. pneumoniae DNA (PCR) Coronavirus OC43 (PCR) Coronavirus HKU1 (PCR) Coronavirus 229E (PCR) SARS-CoV-2 (PCR) Coronavirus NL63 (PCR) EBV Capsid Ag IgG Ab EBV Capsid Ag IgM Ab EBV EA Restrict+Diffuse EBV Nuclear Antigen Ab EBV Antibody Interp Monoscreen Human Metapneumovir PCR Influenza Type A (PCR) Influenza Type B (PCR) M. pneumoniae (PCR) Parainfluenza 1 (PCR) Parainfluenza 2 (PCR) Parainfluenza 3 (PCR) Parainfluenza 4 (PCR) RSV (RT-PCR) RSV (PCR) Entero/Rhino (PCR) Group A Strep (PCR) 02/24/22 02/24/22 10:06 Unknown WBC RBC Hgb Hct MCV MCH MCHC RDW Std Deviation RDW Coeff of Javier Plt Count MPV Immature Gran % (Auto) Neut % (Auto) Lymph % (Auto) [place] % (Auto) Eos % (Auto) Baso % (Auto) Neut # (Auto) Lymph # (Auto) Deuel # (Auto) Eos # (Auto) Baso # (Auto) Immature Gran # (Auto) ESR Sodium Potassium Chloride Carbon Dioxide Anion Gap BUN Creatinine Est Cr Clr Drug Dosing Est GFR ( Amer) Est GFR (Non-Af Amer) BUN/Creatinine Ratio Glucose Calcium Magnesium Total Bilirubin Direct Bilirubin AST ALT Alkaline Phosphatase Troponin I C-Reactive Protein Total Protein Albumin Procalcitonin 0.76 H Urine Color Urine Appearance Urine pH Ur Specific [place] Urine Protein Urine Glucose (UA) Urine Ketones Urine Blood Urine Nitrite Urine Bilirubin Urine Urobilinogen Ur Leukocyte Esterase Urine WBC (Auto) Urine RBC (Auto) U Hyaline Cast (Auto) U Epithel Cells (Auto) Urine Bacteria (Auto) Ur Renal Epithelial Cell Urine Yeast Urine Test Negative Adenovirus (PCR) B. pertussis DNA (PCR) B.parapertussis DNA PCR C. pneumoniae DNA (PCR) Coronavirus OC43 (PCR) Coronavirus HKU1 (PCR) Coronavirus 229E (PCR) SARS-CoV-2 (PCR) Coronavirus NL63 (PCR) EBV Capsid Ag IgG Ab EBV Capsid Ag IgM Ab EBV EA Restrict+Diffuse EBV Nuclear Antigen Ab EBV Antibody Interp Monoscreen Human Metapneumovir PCR Influenza Type A (PCR) Influenza Type B (PCR) M. pneumoniae (PCR) Parainfluenza 1 (PCR) Parainfluenza 2 (PCR) Parainfluenza 3 (PCR) Parainfluenza 4 (PCR) RSV (RT-PCR) RSV (PCR) Entero/Rhino (PCR) Group A Strep (PCR) Diagnostic Findings CTA chest 02/23/2022: No PE per Radiology. Clear lungs per Radiology. Thoracic aorta normal caliber. No dissection noted. Telemetry personally reviewed: Sinus with sinus tachycardia. Echo 02/24/2022: Normal LV size, wall motion, systolic function. EF 55-60%. No significant diastolic dysfunction. No significant valvular abnormalities. RVSP 23. ECGs personally reviewed: ECG 02/23/2022: Sinus 85 beats per minute. Medications Administered Current Inpatient Medications Acetaminophen (Acetaminophen 325 Mg Tab) 650 mg PO Q4H PRN PRN Reason: Pain or Fever Stop: 03/25/22 19:38 Last Admin: 02/23/22 20:34 Dose: 650 mg Documented by: Albuterol (Albut/Ipratrop 3mg/0.5mg Neb 3 Ml Vial) 3 ml NEB Q4R PRN; Protocol PRN Reason: wheeze/dyspnea Stop: 03/25/22 19:38 Albuterol (Albuterol Hfa 8 Gm Inhaler) 2 puffs INH Q6 PRN PRN Reason: wheeze/dyspnea Stop: 03/25/22 19:38 Aspirin (Aspirin 325 Mg Ectab) 325 mg PO BID [facility] Stop: 03/26/22 20:59 Cetirizine HCl (Cetirizine Hcl 10 Mg Tablet) 10 mg PO DAILY [facility] Stop: 03/26/22 08:59 Last Admin: 02/24/22 08:15 Dose: 10 mg Documented by: Colchicine (Colchicine 0.6 Mg Tab) 0.6 mg PO QAM [facility] Stop: 03/27/22 08:59 Fluticasone/Vilanterol (Fluticasone/Vilanterol 200/25mcg 14 Puffs/Inhaler) 1 puffs INH QAM CLAUDE; Protocol Stop: 03/26/22 08:59 Last Admin: 02/24/22 08:16 Dose: Not Given Documented by: Guaifenesin (Guaifenesin Sugar Free 100 Mg/5 Ml Udc) 100 mg PO Q6H PRN PRN Reason: Cough Stop: 03/26/22 08:15 Last Admin: 02/24/22 09:18 Dose: 100 mg Documented by: Lactated Ringer's (Lr) 1,000 mls @ 125 mls/hr IV .Q8H [facility] Stop: 03/25/22 19:38 Last Admin: 02/24/22 12:28 Dose: 125 mls/hr Documented by: Ampicillin Sodium/Sulbactam Sodium 1,500 mg/ Sodium Chloride 104 mls @ 200 mls/hr IV Q6H [facility]; Protocol Stop: 03/05/22 19:59 Last Admin: 02/24/22 14:29 Dose: 200 mls/hr Documented by: Montelukast Sodium (Montelukast Sodium 10 Mg Tablet) 10 mg PO QPM [facility] Stop: 03/25/22 20:59 Last Admin: 02/23/22 22:03 Dose: 10 mg Documented by: Nystatin (Nystatin Susp 500,000 U/5 Ml Udc) 5 ml PO QID [facility] Stop: 03/05/22 20:59 Last Admin: 02/24/22 12:29 Dose: 5 ml Documented by: Ondansetron HCl (Ondansetron 4 Mg Od Tab) 4 mg PO Q4H PRN PRN Reason: Nausea And Vomiting Stop: 03/25/22 19:38 PG Care Time/CCT Total # of Minutes Spent Total Time Spent with Patient: Total time spent is greater than 50% in coordination of care (as documented) at patient's floor/unit and/or counseling patient: Coding Level of Care Code 74031 Inpt Consult Level 4 Diagnoses Acute myopericarditis I30.9 Adenovirus positive by PCR B34.0 Hyponatremia E87.1 Sinus tachycardia R00.0 Engages in vaping Z72.89
[2022-02-24] MEDS: ASPIRIN 325 MG ECTAB PO SCH (20:24)
[2022-02-24] MEDS: MONTELUKAST SODIUM 10 MG TABLET PO SCH (20:24)
[2022-02-24] MEDS: ACETAMINOPHEN 325 MG TAB PO PRN (20:24)
[2022-02-25] MEDS: AMPICILLIN/SULBACTAM SOD 1,500 MG in 0.9 % SODIUM CHLORIDE 100 ML IV SCH ×4 (02:42→20:19)
[2022-02-25] MEDS: LACTATED RINGER'S 1,000 ML IV SCH (04:57)
--- NOTE | 2022-02-25 05:50 | Electrocardiogram Report ---
Test Reason : Blood Pressure : / mmHG Vent. Rate : 085 BPM Atrial Rate : 085 BPM P-R Int : 136 ms QRS Dur : 090 ms QT Int : 356 ms P-R-T Axes : 036 087 043 degrees QTc Int : 423 ms Poor data quality, interpretation may be adversely affected Normal sinus rhythm Normal ECG No previous ECGs available Confirmed by Dom Veronica ([id number]) on 02/25/2022 5:50:06 AM Referred By: Confirmed By:Dom Veronica
[2022-02-25] MEDS: ASPIRIN 325 MG ECTAB PO SCH ×2 (08:03→20:22)
[2022-02-25] MEDS: COLCHICINE 0.6 MG TAB PO SCH (08:04)
[2022-02-25] MEDS: NYSTATIN SUSP 500,000 U/5 ML UDC PO SCH ×4 (08:04→20:21)
[2022-02-25] MEDS: CETIRIZINE HCL 10 MG TABLET PO SCH (08:04)
[2022-02-25] MEDS: FLUTICASONE/VILANTEROL 200/25MCG 14 PUFFS/INHALER INH SCH (08:05)
--- NOTE | 2022-02-25 08:20 | Pulmonary Consultation ---
Date of Consultation February 25, 2022 Assessment & Plan (1) Engages in vaping: (2) Hemoptysis: (3) Asthma: CT chest 02/23/2022 personally reviewed: No pulmonary infiltrate or nodule No mediastinal lymphadenopathy --Hemoptysis The etiology is most likely from constant coughing Etiology of cough could be adenovirus/group B strep pharyngitis There is no anatomical abnormality appreciated on the CT chest when it comes to pulmonary Continue with antibiotics for strep pharyngitis COVID-19 PCR negative x2 Symptomatic management to suppress the cough which will eventually decrease hemoptysis Recommend guaifenesin-DM [id number] for the time being. The patient is still complaining of significant cough then would recommend guaifenesin-codeine [id number] --Asthma On Symbicort 2 puffs once a day in the morning, montelukast and antihistamine at home Continue with Breo while the patient is in the hospital --Vaping Advised to quit Plan: Guaifenesin-DM [id number], consider guaifenesin-codeine if cough still persists No indication for steroids right now. Continue with Breo. Please note the above document was generated using voice recognition software. It may contain grammatical, syntax or spelling errors.Any formal questions or concerns about the content, text or information contained within the body of this dictation should be directly addressed to the provider for clarification. History of Present Illness Attending Physician: Pro Markham MD History of Present Illness 21-year-old female presented to the hospital with complaints of fevers and chest pain. Was found to have myocarditis Past medical history: Asthma Plan we will consult because of hemoptysis At the time of examination patient said that she has been having coughing for the last for 5 days. She will bring her blood. Which has decreased in amount compared to before. She is still coughing. Her cough comes in bouts. Her chest pain is getting better since coming to the hospital. There is no positional change to her chest pain Has been afebrile since last 24 hours. Complains of mild headache. No blurry vision No nausea or vomiting. Good appetite. Social history: Non-smoker, does vape Allergies Allergy/AdvReac Type Severity Reaction Status Date / Time shellfish derived Allergy Severe Difficulty Verified 02/23/22 15:36 Breathing cat dander Allergy Mild Congested Verified 02/23/22 15:36 dog dander Allergy Mild Congested Verified 02/23/22 15:36 grass pollen Allergy Mild Congested Verified 02/23/22 15:36 tree and shrub pollen Allergy Mild Congested Verified 02/23/22 15:36 Home Medications Medication Instructions Recorded Confirmed Type budesonide-formoterol HFA 160 2 puff INHALATION QAM 02/23/22 02/23/22 History mcg-4.5 mcg/actuation aerosol inhaler cetirizine 10 mg tablet (Zyrtec) 10 mg PO DAILY 02/23/22 02/23/22 History fluconazole 100 mg tablet 100 mg PO UD 02/23/22 02/23/22 History isotretinoin 40 mg capsule 40 mg PO BID 02/23/22 02/23/22 History (Claravis) levonorgestrel (Kyleena) 1 device INTRAUTERINE 02/23/22 History montelukast 10 mg tablet 10 mg PO QPM 02/23/22 02/23/22 History Patient History Medical History Asthma Uses control Vapes non-nicotine containing substance Surgical History (Updated 02/23/22 @ 20:37 by Constance Richard MD) No pertinent past surgical history Family History Other COPD (chronic obstructive pulmonary disease) Hypertension Lung cancer Social History Smoking Status: Former smoker Cigarettes Per Day: vapes; Second Hand Exposure: No; Do You Dip or Chew Tobacco: No; Tobacco Cessation Education Requested by Patient: Yes Hx Alcohol Use: No Hx Substance Use: No Preferred Language: Cameroonian Communication Ability: Effective Automatic Glove Turner And Former Required: No Beliefs That Will Affect Care: None Current Living Situation: Other Current Living Situation Comment: off campus apartment with roommate Other Information That Helps Us Care for You: No Feels Safe at Home: Yes Safety Concerns: Feels Safe At This Time Assistive Devices: None Review of Systems Review of Systems: All systems reviewed & are unremarkable except as noted in HPI & below Physical Exam Physical Exam: Constitutional: No acute distress HEENT: EOMI, PERRLA, conjunctival injection Respiratory system: Good air entry bilaterally, no rhonchi, no crackles, minimal expiratory wheeze CVS: S1-S2 positive, no murmurs or gallops Abdomen: Soft, nontender, nondistended, positive bowel sounds x4 Extremities: +2 pulses bilaterally radialis/ dorsalis pedis, no cyanosis, no edema Neuro: Awake alert oriented x3 Psych: Normal mood and affect G/U: No [place] Skin: no rashes, warm and dry Lymphatic: no cervical or axillary lymphadenopathy Results & Data Results & Data ([facility]) Vital Signs (Past 12 Hours) Vital Signs Temp Pulse Pulse Resp BP Pulse Ox 02/25/22 07:52 36.8 C 93 H 18 95/61 L 97 02/25/22 07:00 76 02/25/22 02:36 36.4 C L 66 16 113/68 98 02/25/22 00:02 37.0 C 77 18 102/70 96 02/24/22 22:18 78 Laboratory Results 02/24/22 10:06 02/24/22 10:06 PG Care Time/CCT Total # of Minutes Spent Total Time Spent with Patient: Total time spent is greater than 50% in coordination of care (as documented) at patient's floor/unit and/or counseling patient: [place] [address] Initial Inpt Care Lvl 3 Patient Type New Diagnoses Engages in vaping Z72.89 Hemoptysis R04.2 Asthma J45.909
[2022-02-25 08:42] LABS: Basophils # (auto) 0.03 K/uL (0-0.2); Basophils % (auto) 0.5 %; Eosinophils # (auto) 0.07 K/uL (0-0.5); Eosinophils % (auto) 1.1 %; Hematocrit (blood only) 35.5 % (37-47); Hemoglobin 12.1 g/dL (12.0-16.0); Immature Granulocytes # (auto) 0.05 K/uL (0.00-0.02); Immature Granulocytes % (auto) 0.8 %; Lymphocytes # (auto) 1.59 K/uL (1.2-3.4); Lymphocytes % (auto) 23.9 %; Mean Corpuscular Hemoglobin 31.1 pg (25-34); Mean Corpuscular Hgb Conc 34.1 g/dL (32-36); Mean Corpuscular Volume 91.3 fL (80-100); Monocytes # (auto) 0.69 K/uL (0.11-0.59); Monocytes % (auto) 10.4 %; Neutrophils # (auto) 4.23 K/uL (1.4-6.5); Neutrophils % (auto) 63.3 %; Platelet Count 237 K/uL (130-400); RDW Coefficient of Variation 13.5 % (11.5-14.5); Red Blood Count 3.89 M/uL (4.2-5.4); White Blood Count 6.66 K/uL (4.8-10.8)
[2022-02-25] MEDS: guaiFENesin/DEXTROM SYRUP 200MG/20MG 10ML UDC PO SCH ×3 (10:13→20:21)
[2022-02-25 10:17] LABS: Anion Gap 6 (3-11); BUN Creatinine Ratio 8.9 (10-20); Blood Urea Nitrogen 5 mg/dl (6-23); Calcium 9.1 mg/dl (8.5-10.1); Carbon Dioxide 33 mmol/L (21-32); Chloride 100 mmol/L (98-107); Creatinine Clr Calc Pharmacy 151.8 ml/min; Est GFR (African American) > 150.0 ml/min; Est GFR (Non-African American) 134.2 ml/min; Glucose 124 mg/dl (70-99(Fasting)); Magnesium 2.2 mg/dl (1.7-2.4); Potassium 3.9 mmol/L (3.5-5.1); Sodium 139 mmol/L (136-145)
--- NOTE | 2022-02-25 12:23 | Hospitalist Progress Note ---
Date of Service February 25, 2022 Assessment & Plan (1) Myocarditis: Plan: Viral myocarditis likely responsible for her clinical presentation - Adenovirus on viral PCR which is a common cause of myocarditis - other cultures negative so far - Placed on colchicine and ASA by cardiology, appreciate recs -2 D ECHO was essentially normal, will repeat in a few days according to cardiology (2) Adenovirus positive by PCR: Plan: As above (3) Leukocytosis: Plan: now resolved (4) Upper respiratory infection: Plan: COVID test negative x2 - Biofire with Adenovirus - will place on COVID precautions secondary to close contact - Likely re-test for Covid in morning - await further viral cultures - Nebs PRN - Continue Symbicort and CARIN -Continues to have blood tinged cough -Placed on guanefesin by Pulm (5) Hyponatremia: Plan: now resolved (6) Asthma: Plan: Well controlled with Symbicort- she rarely has to use her CARIN and has been woken up 1 time in the past year to use her CARIN (7) Rash and nonspecific skin eruption: Plan: Viral mediated likely. Is present on palms and soles as well as arms and upper thighs. With some erythema and edema of the fingers and toes Also with pharyngitis and possible strawberry tongue - no meningismus signs - clearing up (8) Enlarged tonsils and adenoids: Plan: As above- throat culture pending, Monospot negative, group A strep rapid test negative Secondary to adenovirus She has been taking fluconazole as an outpatient for suspected thrush-oropharynx does not appear to have thrush but can continue nystatin swish and swallow for now On Unasyn in case rapid test was false negative (9) Engages in vaping: Plan: patient was adviced to stop Admission and Anticipated Discharge Date Admission Date: February 23, 2022 Subjective patient seen and examined today, still coughing up blood tinged sputum Review of Systems Review of Systems: All systems reviewed are negative, apart from the ones contained in the history. Physical Exam Physical Exam: The patient is awake, alert and oriented 3, well developed and well nourished, normocephalic and atraumatic, lying in bed and in no acute distress. HEENT--PERRL, EOMI, mucous membranes and oropharynx mildly dry Neck--supple. No JVD. No bruits. Thyroid normal, trachea midline, no adenopathy. Heart--normal S1 and S2. No murmurs, rubs or gallops. Lungs--clear bilaterally, no respiratory distress, no accessory muscle use. Abdomen--normal bowel sounds and soft. Mild epigastric and left sided abdominal pain Extremities--no cyanosis or clubbing. No edema. Dermatologic--normal skin turgor, normal color, no abnormal lymph nodes, no rash. Neurologic--cranial nerves II through XII grossly intact. Rheumatologic--normal range of motion. Psychiatric--normal affect. Results & Data Results & Data ([facility]) Vital Signs (Past 12 Hours) Vital Signs Temp Pulse Pulse Resp BP Pulse Ox 02/25/22 12:03 98.2 F 80 18 106/71 97 02/25/22 07:52 98.2 F 93 H 18 95/61 L 97 02/25/22 07:00 76 02/25/22 02:36 97.5 F L 66 16 113/68 98 Laboratory Results Laboratory Results - last 24 hr 02/23/22 02/24/22 02/24/22 13:30 16:27 Unknown WBC RBC Hgb Hct MCV MCH MCHC RDW Std Deviation RDW Coeff of Javier Plt Count MPV Immature Gran % (Auto) Neut % (Auto) Lymph % (Auto) [place] % (Auto) Eos % (Auto) Baso % (Auto) Neut # (Auto) Lymph # (Auto) [place] # (Auto) Eos # (Auto) Baso # (Auto) Immature Gran # (Auto) Sodium Potassium Chloride Carbon Dioxide Anion Gap BUN Creatinine Est Cr Clr Drug Dosing Est GFR ( Amer) Est GFR (Non-Af Amer) BUN/Creatinine Ratio Glucose Calcium Magnesium Troponin I 6.20 H* Urine Test Negative EBV Capsid Ag IgG Ab 89.60 H EBV Capsid Ag IgM Ab 82.00 H EBV EA Restrict+Diffuse 46.20 H EBV Nuclear Antigen Ab 24.70 H EBV Antibody Interp SEE NOTE 02/25/22 02/25/22 08:30 08:30 WBC 6.66 RBC 3.89 L Hgb 12.1 Hct 35.5 L MCV 91.3 MCH 31.1 MCHC 34.1 RDW Std Deviation 45.0 RDW Coeff of Javier 13.5 Plt Count 237 MPV 9.0 Immature Gran % (Auto) 0.8 Neut % (Auto) 63.3 Lymph % (Auto) 23.9 [place] % (Auto) 10.4 Eos % (Auto) 1.1 Baso % (Auto) 0.5 Neut # (Auto) 4.23 Lymph # (Auto) 1.59 [place] # (Auto) 0.69 H Eos # (Auto) 0.07 Baso # (Auto) 0.03 Immature Gran # (Auto) 0.05 H Sodium 139 Potassium 3.9 Chloride 100 Carbon Dioxide 33 H Anion Gap 6 BUN 5 L Creatinine 0.56 L Est Cr Clr Drug Dosing 151.8 Est GFR ( Amer) > 150.0 Est GFR (Non-Af Amer) 134.2 BUN/Creatinine Ratio 8.9 L Glucose 124 H Calcium 9.1 Magnesium 2.2 Troponin I Urine Test EBV Capsid Ag IgG Ab EBV Capsid Ag IgM Ab EBV EA Restrict+Diffuse EBV Nuclear Antigen Ab EBV Antibody Interp PG Care Time/CCT Total # of Minutes Spent Total Time Spent with Patient: Total time spent is greater than 50% in coordination of care (as documented) at patient's floor/unit and/or counseling patient: Coding Level of Care Code 68958 Subseq Hosp Care Lvl 2 Diagnoses Myocarditis I40.9 Chronicity: acute Myocarditis type: unspecified Adenovirus positive by PCR B34.0 Leukocytosis D72.829 Upper respiratory infection J06.9 URI type: unspecified URI Hyponatremia E87.1 Asthma J45.909 Rash and nonspecific skin eruption R21 Enlarged tonsils and adenoids J35.3 Engages in vaping Z72.89 Time Spent (min) 35 (1) Myocarditis Chronicity: acute Myocarditis type: unspecified Qualified Code(s): I40.9 - Acute myocarditis, unspecified (2) Upper respiratory infection URI type: unspecified URI Qualified Code(s): J06.9 - Acute upper respiratory infection, unspecified
--- NOTE | 2022-02-25 16:05 | Cardiology Progress Note ---
Date of Service February 25, 2022 Assessment & Plan (1) Acute myopericarditis: (2) Adenovirus positive by PCR: (3) Hyponatremia: (4) Sinus tachycardia: (5) Engages in vaping: Plan: ASSESSMENT/PLAN: 1. Acute myopericarditis: Feeling much better overall. Less chest discomfort. Recommend treatment with aspirin 325 mg twice daily, which can be discontinue if pain subsides and then used on an as-needed basis. Continue colchicine 0.6 mg p.o. once daily and would continue for a 3 month course to help reduce risk of recurrence. Normal LV systolic function initially. Repeat limited echo tomorrow. Recommend avoiding exercise, other than walking, for 3 months (discussed). 2. Sinus tachycardia: Resolved. Likely due to her infection and presenting with hypovolemia. 3. Vaping: Recommended that she stop vaping. 4. Hyponatremia: Sodium has normalized. 5. Fever/Adenovirus positive/positive throat culture/possible UTI: As per primary service. She has tested negative for COVID-19 thus far but had recent contact in the form of her roommate who tested positive for COVID-19. Infectious disease consultation is pending. Defer to ID and hospitalist service. Currently on antibiotics per hospitalist. 6. Disposition: Cardiology will continue to follow. Please call with any other questions or concerns. Admission and Anticipated Discharge Date Admission Date: February 23, 2022 Subjective Overall, she feels much better today. Her swollen lymph node on her neck has improved per her report. Bloody sputum that she has been coughing up has also improved. She was seen by pulmonology today. Her pleuritic and positional chest pain has improved. She has not had any further vomiting or diarrhea. She tolerated some food today. She was alone in her hospital room. Review of systems: As above. Physical Exam Physical Exam: Gen.: No acute distress. Alert and oriented. HEENT: Anicteric sclera. Neck: No JVD. Cardiac: PMI was nondisplaced. No ventricular heave. Regular. Normal rate. Normal S1-S2. No murmurs, rubs, or gallops. Pulmonary: Clear to auscultation bilaterally without wheezes, rales, or rhonchi. Abdomen: Soft, nontender, nondistended, with normoactive bowel sounds. No bruits noted. Extremities: 2+ radial pulses bilaterally. 2+ posterior tibialis pulses bilaterally. No edema or cyanosis. Psychiatric: Affect appears appropriate. Results & Data ([facility]) Vital Signs (Past 12 Hours) Vital Signs Temp Pulse Pulse Resp BP Pulse Ox 02/25/22 15:20 36.4 C L 81 18 103/73 97 02/25/22 15:10 80 02/25/22 12:03 36.8 C 80 18 106/71 97 02/25/22 07:52 36.8 C 93 H 18 95/61 L 97 02/25/22 07:00 76 Laboratory Results Laboratory Results - last 24 hr 02/23/22 02/24/22 02/25/22 13:30 16:27 08:30 WBC 6.66 RBC 3.89 L Hgb 12.1 Hct 35.5 L MCV 91.3 MCH 31.1 MCHC 34.1 RDW Std Deviation 45.0 RDW Coeff of Javier 13.5 Plt Count 237 MPV 9.0 Immature Gran % (Auto) 0.8 Neut % (Auto) 63.3 Lymph % (Auto) 23.9 [place] % (Auto) 10.4 Eos % (Auto) 1.1 Baso % (Auto) 0.5 Neut # (Auto) 4.23 Lymph # (Auto) 1.59 [place] # (Auto) 0.69 H Eos # (Auto) 0.07 Baso # (Auto) 0.03 Immature Gran # (Auto) 0.05 H Sodium Potassium Chloride Carbon Dioxide Anion Gap BUN Creatinine Est Cr Clr Drug Dosing Est GFR ( Amer) Est GFR (Non-Af Amer) BUN/Creatinine Ratio Glucose Calcium Magnesium Troponin I 6.20 H* EBV Capsid Ag IgG Ab 89.60 H EBV Capsid Ag IgM Ab 82.00 H EBV EA Restrict+Diffuse 46.20 H EBV Nuclear Antigen Ab 24.70 H EBV Antibody Interp SEE NOTE 02/25/22 08:30 WBC RBC Hgb Hct MCV MCH MCHC RDW Std Deviation RDW Coeff of Javier Plt Count MPV Immature Gran % (Auto) Neut % (Auto) Lymph % (Auto) [place] % (Auto) Eos % (Auto) Baso % (Auto) Neut # (Auto) Lymph # (Auto) [place] # (Auto) Eos # (Auto) Baso # (Auto) Immature Gran # (Auto) Sodium 139 Potassium 3.9 Chloride 100 Carbon Dioxide 33 H Anion Gap 6 BUN 5 L Creatinine 0.56 L Est Cr Clr Drug Dosing 151.8 Est GFR ( Amer) > 150.0 Est GFR (Non-Af Amer) 134.2 BUN/Creatinine Ratio 8.9 L Glucose 124 H Calcium 9.1 Magnesium 2.2 Troponin I EBV Capsid Ag IgG Ab EBV Capsid Ag IgM Ab EBV EA Restrict+Diffuse EBV Nuclear Antigen Ab EBV Antibody Interp Diagnostic Findings Telemetry personally reviewed: Sinus rhythm. Overall, heart rate has improved as she is no longer tachycardic. Medications Administered Current Inpatient Medications Acetaminophen (Acetaminophen 325 Mg Tab) 650 mg PO Q4H PRN PRN Reason: Pain or Fever Stop: 03/25/22 19:38 Last Admin: 02/24/22 20:24 Dose: 650 mg Documented by: Albuterol (Albut/Ipratrop 3mg/0.5mg Neb 3 Ml Vial) 3 ml NEB Q4R PRN; Protocol PRN Reason: wheeze/dyspnea Stop: 03/25/22 19:38 Albuterol (Albuterol Hfa 8 Gm Inhaler) 2 puffs INH Q6 PRN PRN Reason: wheeze/dyspnea Stop: 03/25/22 19:38 Aspirin (Aspirin 325 Mg Ectab) 325 mg PO BID [facility] Stop: 03/26/22 20:59 Last Admin: 02/25/22 08:03 Dose: 325 mg Documented by: Cetirizine HCl (Cetirizine Hcl 10 Mg Tablet) 10 mg PO DAILY [facility] Stop: 03/26/22 08:59 Last Admin: 02/25/22 08:04 Dose: 10 mg Documented by: Colchicine (Colchicine 0.6 Mg Tab) 0.6 mg PO QAM [facility] Stop: 03/27/22 08:59 Last Admin: 02/25/22 08:04 Dose: 0.6 mg Documented by: Fluticasone/Vilanterol (Fluticasone/Vilanterol 200/25mcg 14 Puffs/Inhaler) 1 puffs INH QAM [facility]; Protocol Stop: 03/26/22 08:59 Last Admin: 02/25/22 08:05 Dose: Not Given Documented by: Guaifenesin (Guaifenesin Sugar Free 100 Mg/5 Ml Udc) 100 mg PO Q6H PRN PRN Reason: Cough Stop: 03/26/22 08:15 Last Admin: 02/24/22 20:24 Dose: 100 mg Documented by: Guaifenesin/Dextromethorphan (Guaifenesin/Dextrom Syrup 200mg/20mg 10ml Udc) 10 ml PO Q6H [facility] Stop: 03/27/22 08:29 Last Admin: 02/25/22 14:42 Dose: 10 ml Documented by: Ampicillin Sodium/Sulbactam Sodium 1,500 mg/ Sodium Chloride 104 mls @ 200 mls/hr IV Q6H [facility]; Protocol Stop: 03/05/22 19:59 Last Infusion: 02/25/22 15:15 Dose: Infused Documented by: Montelukast Sodium (Montelukast Sodium 10 Mg Tablet) 10 mg PO QPM [facility] Stop: 03/25/22 20:59 Last Admin: 02/24/22 20:24 Dose: 10 mg Documented by: Nystatin (Nystatin Susp 500,000 U/5 Ml Udc) 5 ml PO QID [facility] Stop: 03/05/22 20:59 Last Admin: 02/25/22 14:42 Dose: 5 ml Documented by: Ondansetron HCl (Ondansetron 4 Mg Od Tab) 4 mg PO Q4H PRN PRN Reason: Nausea And Vomiting Stop: 03/25/22 19:38 PG Care Time/CCT Total # of Minutes Spent Total Time Spent with Patient: Total time spent is greater than 50% in coordination of care (as documented) at patient's floor/unit and/or counseling patient: Coding Level of Care Code 56040 Subseq Hosp Care Lvl 3 Diagnoses Acute myopericarditis I30.9 Adenovirus positive by PCR B34.0 Hyponatremia E87.1 Sinus tachycardia R00.0 Engages in vaping Z72.89
[2022-02-25] MEDS: ACETAMINOPHEN 325 MG TAB PO PRN (20:20)
[2022-02-25] MEDS: MONTELUKAST SODIUM 10 MG TABLET PO SCH (20:22)
--- NOTE | 2022-02-25 22:15 | Electrocardiogram Report ---
Test Reason : Blood Pressure : / mmHG Vent. Rate : 098 BPM Atrial Rate : 098 BPM P-R Int : 136 ms QRS Dur : 082 ms QT Int : 320 ms P-R-T Axes : 036 093 073 degrees QTc Int : 408 ms Normal sinus rhythm Rightward axis Borderline ECG When compared with ECG of 23-FEB-2022 13:57, No significant change was found Confirmed by Dom Veronica ([id number]) on 02/25/2022 10:15:17 PM Referred By: REFERRED SELF Confirmed By:Dom Veronica
[2022-02-26] MEDS: AMPICILLIN/SULBACTAM SOD 1,500 MG in 0.9 % SODIUM CHLORIDE 100 ML IV SCH ×4 (01:50→19:56)
[2022-02-26] MEDS: guaiFENesin/DEXTROM SYRUP 200MG/20MG 10ML UDC PO SCH ×4 (01:51→20:30)
[2022-02-26 08:02] LABS: Hematocrit (blood only) 34.3 % (37-47); Hemoglobin 11.5 g/dL (12.0-16.0); Mean Corpuscular Hemoglobin 30.9 pg (25-34); Mean Corpuscular Hgb Conc 33.5 g/dL (32-36); Mean Corpuscular Volume 92.2 fL (80-100); Mean Platelet Volume 10.2 fL (7.4-10.4); Platelet Count 294 K/uL (130-400); RDW Coefficient of Variation 13.4 % (11.5-14.5); Red Blood Count 3.72 M/uL (4.2-5.4); White Blood Count 4.98 K/uL (4.8-10.8)
[2022-02-26] MEDS: CETIRIZINE HCL 10 MG TABLET PO SCH (08:06)
[2022-02-26] MEDS: ASPIRIN 325 MG ECTAB PO SCH ×2 (08:06→20:30)
[2022-02-26] MEDS: COLCHICINE 0.6 MG TAB PO SCH (08:07)
[2022-02-26] MEDS: NYSTATIN SUSP 500,000 U/5 ML UDC PO SCH ×4 (08:08→20:30)
[2022-02-26] MEDS: FLUTICASONE/VILANTEROL 200/25MCG 14 PUFFS/INHALER INH SCH (08:08)
[2022-02-26 08:23] LABS: Anion Gap 5 (3-11); BUN Creatinine Ratio 8.9 (10-20); Blood Urea Nitrogen 4 mg/dl (6-23); Calcium 8.8 mg/dl (8.5-10.1); Carbon Dioxide 32 mmol/L (21-32); Chloride 104 mmol/L (98-107); Creatinine Clr Calc Pharmacy 194.6 ml/min; Est GFR (African American) > 150.0 ml/min; Est GFR (Non-African American) 144.2 ml/min; Glucose 94 mg/dl (70-99(Fasting)); Magnesium 2.4 mg/dl (1.7-2.4); Potassium 3.9 mmol/L (3.5-5.1); Sodium 141 mmol/L (136-145)
[2022-02-26 08:32] LABS: Basophils # (auto) 0.18 K/uL (0-0.2); Basophils % (auto) 3.6 %; Immature Granulocytes # (auto) 0.12 K/uL (0.00-0.02); Immature Granulocytes % (auto) 2.4 %; Lymphocytes % (auto) 46.2 %; Monocytes # (auto) 0.68 K/uL (0.11-0.59); Monocytes % (auto) 13.7 %; Neutrophils % (auto) 28.1 %
--- NOTE | 2022-02-26 12:08 | XCELERA ---
[id number] \\[id number]_Reports\[id number]}___[id number].pdf
--- NOTE | 2022-02-26 12:22 | Pulmonology Progress Note ---
Date of Service February 26, 2022 Assessment & Plan (1) Engages in vaping: (2) Hemoptysis: (3) Asthma: Plan: CT chest 02/23/2022 personally reviewed: No pulmonary infiltrate or nodule No mediastinal lymphadenopathy --Hemoptysis The etiology is most likely from constant coughing Etiology of cough could be adenovirus/group B strep pharyngitis There is no anatomical abnormality appreciated on the CT chest when it comes to pulmonary Continue with antibiotics for strep pharyngitis COVID-19 PCR negative x2 Symptomatic management to suppress the cough which will eventually decrease hemoptysis Recommend guaifenesin-DM [id number] for the time being. If the patient is still complaining of significant cough then would recommend guaifenesin-codeine [id number] --Asthma On Symbicort 2 puffs once a day in the morning, montelukast and antihistamine at home Continue with Breo while the patient is in the hospital --Vaping Advised to quit Plan: H&H is stable Cough is decreasing in amount Continue with guaifenesin-DM [id number]. Can escalate to guaifenesin-DM if need be Case discussed with RN Radha No further recommendation from pulmonary perspective. Please call directly with any questions Please note the above document was generated using voice recognition software. It may contain grammatical, syntax or spelling errors.Any formal questions or concerns about the content, text or information contained within the body of this dictation should be directly addressed to the provider for clarification. Admission and Anticipated Discharge Date Admission Date: February 23, 2022 Subjective Patient's case was discussed with RN. Her cough has decreased in amount Still bringing up blood in the phlegm but it has again decreased Review of Systems Review of Systems: Other Physical Exam Physical Exam: Patient not examined due to coronavirus restrictions and attempts to minimize exposure to staff and consider PPE. Please refer to the hospitalist exam for complete details. Results & Data Results & Data ([facility]) Vital Signs (Past 12 Hours) Vital Signs Temp Pulse Pulse Resp BP Pulse Ox 02/26/22 11:30 36.4 C L 55 L 16 101/62 97 02/26/22 07:32 36.4 C L 58 L 16 99/64 L 97 02/26/22 07:00 61 02/26/22 02:09 36.4 C L 57 L 17 100/64 98 Laboratory Results 02/26/22 07:10 02/26/22 07:10 PG Care Time/CCT Total # of Minutes Spent Total Time Spent with Patient: Total time spent is greater than 50% in coordination of care (as documented) at patient's floor/unit and/or counseling patient: Coding Level of Care Code 70392 Subseq Hosp Care Lvl 1 Diagnoses Engages in vaping Z72.89 Hemoptysis R04.2 Asthma J45.909
--- NOTE | 2022-02-26 12:29 | Hospitalist Progress Note ---
Date of Service February 26, 2022 Assessment & Plan (1) Myocarditis: Plan: Viral myocarditis likely responsible for her clinical presentation - Adenovirus on viral PCR which is a common cause of myocarditis - other cultures negative so far - Placed on colchicine and ASA by cardiology, appreciate recs -2 D ECHO was essentially normal, repeat ECHO showed only small pericardiac fluid, but essentially comparable to the last one -Chest pain has resolved (2) Adenovirus positive by PCR: Plan: As above (3) Leukocytosis: Plan: now resolved (4) Upper respiratory infection: Plan: COVID test negative x2 - Biofire with Adenovirus - will place on COVID precautions secondary to close contact - Likely re-test for Covid in morning - await further viral cultures - Nebs PRN - Continue Symbicort and CARIN -Continues to have blood tinged cough, but with improvement -Placed on guanefesin by Pulm (5) Hyponatremia: Plan: now resolved (6) Asthma: Plan: Well controlled with Symbicort- she rarely has to use her CARIN and has been woken up 1 time in the past year to use her CARIN (7) Rash and nonspecific skin eruption: Plan: Viral mediated likely. Is present on palms and soles as well as arms and upper thighs. With some erythema and edema of the fingers and toes Also with pharyngitis and possible strawberry tongue - no meningismus signs - clearing up (8) Enlarged tonsils and adenoids: Plan: As above- throat culture pending, Monospot negative, group A strep rapid test negative Secondary to adenovirus She has been taking fluconazole as an outpatient for suspected thrush-oropharynx does not appear to have thrush but can continue nystatin swish and swallow for now On Unasyn in case rapid test was false negative (9) Engages in vaping: Plan: patient was adviced to stop Admission and Anticipated Discharge Date Admission Date: February 23, 2022 Subjective patient seen and examined, says no longer coughing up much blood in sputum, SOB is also better Review of Systems Review of Systems: All systems reviewed are negative, apart from the ones contained in the history. Physical Exam Physical Exam: The patient is awake, alert and oriented 3, well developed and well nourished, normocephalic and atraumatic, lying in bed and in no acute distress. HEENT--PERRL, EOMI, mucous membranes and oropharynx mildly dry Neck--supple. No JVD. No bruits. Thyroid normal, trachea midline, no adenopathy. Heart--normal S1 and S2. No murmurs, rubs or gallops. Lungs--clear bilaterally, no respiratory distress, no accessory muscle use. Abdomen--normal bowel sounds and soft. Mild epigastric and left sided abdominal pain Extremities--no cyanosis or clubbing. No edema. Dermatologic--normal skin turgor, normal color, no abnormal lymph nodes, no rash. Neurologic--cranial nerves II through XII grossly intact. Rheumatologic--normal range of motion. Psychiatric--normal affect. Results & Data Results & Data ([facility]) Vital Signs (Past 12 Hours) Vital Signs Temp Pulse Pulse Resp BP Pulse Ox 02/26/22 11:30 97.5 F L 55 L 16 101/62 97 02/26/22 07:32 97.5 F L 58 L 16 99/64 L 97 02/26/22 07:00 61 02/26/22 02:09 97.5 F L 57 L 17 100/64 98 PG Care Time/CCT Total # of Minutes Spent Total Time Spent with Patient: Total time spent is greater than 50% in coordination of care (as documented) at patient's floor/unit and/or counseling patient: Coding Level of Care Code 36362 Subseq Hosp Care Lvl 2 Diagnoses Myocarditis I40.9 Chronicity: acute Myocarditis type: unspecified Adenovirus positive by PCR B34.0 Leukocytosis D72.829 Upper respiratory infection J06.9 URI type: unspecified URI Hyponatremia E87.1 Asthma J45.909 Rash and nonspecific skin eruption R21 Enlarged tonsils and adenoids J35.3 Engages in vaping Z72.89 Time Spent (min) 35 (1) Myocarditis Chronicity: acute Myocarditis type: unspecified Qualified Code(s): I40.9 - Acute myocarditis, unspecified (2) Upper respiratory infection URI type: unspecified URI Qualified Code(s): J06.9 - Acute upper respiratory infection, unspecified
--- NOTE | 2022-02-26 18:49 | Cardiology Progress Note ---
Date of Service February 26, 2022 Assessment & Plan (1) Acute myopericarditis: (2) Adenovirus positive by PCR: (3) Sinus tachycardia: (4) Engages in vaping: (5) Pericardial effusion: Plan: ASSESSMENT/PLAN: 1. Acute myopericarditis: Continues to improve on a daily basis. Chest pain nearly resolved. Continue treatment with aspirin 325 mg twice daily, which can be discontinued from a scheduled regimen when chest pain completely resolves and used p.r.n. for chest discomfort. Continue colchicine 0.6 mg p.o. once daily and would continue for a 3 month course to help reduce risk of recurrence. Normal LV systolic function initially. Recommend avoiding exercise, other than walking, for 3 months (discussed). 2. Sinus tachycardia: Resolved. Likely due to her infection and presenting with hypovolemia. 3. Vaping: Recommended that she stop vaping. 4. Pericardial effusion: Very small. Difficult to know if it is larger compared to initial echo or if simply better seen on current echo as it was really most notable on subcostal views. Pericardial effusion is not unexpected given her clinical presentation and is not showing evidence of hemodynamic compromise. If still hospitalized on 02/28/2022, can repeat limited echo. If discharged, recommend repeating echo as an outpatient in the cardiology office. Discussed with her. 5. Fever/Adenovirus positive/positive throat culture/possible UTI: As per primary service. She has tested negative for COVID-19. Currently on antibiotics per hospitalist. 6. Disposition: Cardiology will sign off for now. Please call with any other questions or concerns. Will arrange for outpatient cardiology appointment in 1- 2 weeks. Admission and Anticipated Discharge Date Admission Date: February 23, 2022 Subjective She is feeling much better today. Chest pain significantly improved and no longer noted chest pain while laying supine. Has very mild pleuritic chest pain remaining, but improving daily. Her throat pain has improved. Her coughing has improved. She has not had any further nausea or vomiting. She was unaccompanied in her hospital room. Review of systems: As above. Physical Exam Physical Exam: Gen.: No acute distress. Alert and oriented. HEENT: Anicteric sclera. Neck: No JVD. Cardiac: PMI was nondisplaced. No ventricular heave. Regular. No ectopy. Normal S1-S2. No murmurs, rubs, or gallops. Pulmonary: Clear to auscultation bilaterally without wheezes, rales, or rhonchi. Abdomen: Soft, nontender, nondistended, with normoactive bowel sounds. No bruits noted. Extremities: 2+ radial pulses bilaterally. 2+ posterior tibialis pulses bilaterally. No pitting edema. No cyanosis. Psychiatric: Affect appears appropriate. Results & Data ([facility]) Vital Signs (Past 12 Hours) Vital Signs Temp Pulse Pulse Resp BP Pulse Ox 02/26/22 15:55 60 02/26/22 15:31 36.6 C 59 L 18 101/65 99 02/26/22 11:30 36.4 C L 55 L 16 101/62 97 02/26/22 07:32 36.4 C L 58 L 16 99/64 L 97 02/26/22 07:00 61 Laboratory Results Laboratory Results - last 24 hr 02/26/22 02/26/22 07:10 07:10 WBC 4.98 RBC 3.72 L Hgb 11.5 L Hct 34.3 L MCV 92.2 MCH 30.9 MCHC 33.5 RDW Std Deviation 45.0 RDW Coeff of Javier 13.4 Plt Count 294 MPV 10.2 Immature Gran % (Auto) 2.4 Neut % (Auto) 28.1 Lymph % (Auto) 46.2 [place] % (Auto) 13.7 Eos % (Auto) 6.0 Baso % (Auto) 3.6 Neut # (Auto) 1.40 Lymph # (Auto) 2.30 [place] # (Auto) 0.68 H Eos # (Auto) 0.30 Baso # (Auto) 0.18 Immature Gran # (Auto) 0.12 H Sodium 141 Potassium 3.9 Chloride 104 Carbon Dioxide 32 Anion Gap 5 BUN 4 L Creatinine 0.45 L Est Cr Clr Drug Dosing 194.6 Est GFR ( Amer) > 150.0 Est GFR (Non-Af Amer) 144.2 BUN/Creatinine Ratio 8.9 L Glucose 94 Calcium 8.8 Magnesium 2.4 Diagnostic Findings Telemetry personally reviewed: Sinus rhythm. No arrhythmia. Limited echo 02/26/2022: Normal LV size, wall motion, systolic function. EF 55-60%. Very small pericardial effusion without echocardiographic evidence of tamponade physiology. Medications Administered Current Inpatient Medications Acetaminophen (Acetaminophen 325 Mg Tab) 650 mg PO Q4H PRN PRN Reason: Pain or Fever Stop: 03/25/22 19:38 Last Admin: 02/25/22 20:20 Dose: 650 mg Documented by: Albuterol (Albut/Ipratrop 3mg/0.5mg Neb 3 Ml Vial) 3 ml NEB Q4R PRN; Protocol PRN Reason: wheeze/dyspnea Stop: 03/25/22 19:38 Albuterol (Albuterol Hfa 8 Gm Inhaler) 2 puffs INH Q6 PRN PRN Reason: wheeze/dyspnea Stop: 03/25/22 19:38 Aspirin (Aspirin 325 Mg Ectab) 325 mg PO BID [facility] Stop: 03/26/22 20:59 Last Admin: 02/26/22 08:06 Dose: 325 mg Documented by: Cetirizine HCl (Cetirizine Hcl 10 Mg Tablet) 10 mg PO DAILY [facility] Stop: 03/26/22 08:59 Last Admin: 02/26/22 08:06 Dose: 10 mg Documented by: Colchicine (Colchicine 0.6 Mg Tab) 0.6 mg PO QAM [facility]UDE Stop: 03/27/22 08:59 Last Admin: 02/26/22 08:07 Dose: 0.6 mg Documented by: Fluticasone/Vilanterol (Fluticasone/Vilanterol 200/25mcg 14 Puffs/Inhaler) 1 puffs INH QAM CLAUDE; Protocol Stop: 03/26/22 08:59 Last Admin: 02/26/22 08:08 Dose: Not Given Documented by: Guaifenesin (Guaifenesin Sugar Free 100 Mg/5 Ml Udc) 100 mg PO Q6H PRN PRN Reason: Cough Stop: 03/26/22 08:15 Last Admin: 02/24/22 20:24 Dose: 100 mg Documented by: Guaifenesin/Dextromethorphan (Guaifenesin/Dextrom Syrup 200mg/20mg 10ml Udc) 10 ml PO Q6H [facility]UDE Stop: 03/27/22 08:29 Last Admin: 02/26/22 14:02 Dose: 10 ml Documented by: Ampicillin Sodium/Sulbactam Sodium 1,500 mg/ Sodium Chloride 104 mls @ 200 mls/hr IV Q6H CLAUDE; Protocol Stop: 03/05/22 19:59 Last Infusion: 02/26/22 14:34 Dose: Infused Documented by: Montelukast Sodium (Montelukast Sodium 10 Mg Tablet) 10 mg PO QPM [facility] Stop: 03/25/22 20:59 Last Admin: 02/25/22 20:22 Dose: 10 mg Documented by: Nystatin (Nystatin Susp 500,000 U/5 Ml Udc) 5 ml PO QID [facility] Stop: 03/05/22 20:59 Last Admin: 02/26/22 16:12 Dose: 5 ml Documented by: Ondansetron HCl (Ondansetron 4 Mg Od Tab) 4 mg PO Q4H PRN PRN Reason: Nausea And Vomiting Stop: 03/25/22 19:38 PG Care Time/CCT Total # of Minutes Spent Total Time Spent with Patient: Total time spent is greater than 50% in coordination of care (as documented) at patient's floor/unit and/or counseling patient: Coding Level of Care Code 62073 Subseq Hosp Care Lvl 3 Diagnoses Acute myopericarditis I30.9 Adenovirus positive by PCR B34.0 Sinus tachycardia R00.0 Engages in vaping Z72.89 Pericardial effusion I31.3
[2022-02-26] MEDS: MONTELUKAST SODIUM 10 MG TABLET PO SCH (20:30)
[2022-02-26] MEDS: ACETAMINOPHEN 325 MG TAB PO PRN (20:30)
[2022-02-27] MEDS: guaiFENesin/DEXTROM SYRUP 200MG/20MG 10ML UDC PO SCH ×2 (02:49→07:49)
[2022-02-27] MEDS: AMPICILLIN/SULBACTAM SOD 1,500 MG in 0.9 % SODIUM CHLORIDE 100 ML IV SCH ×2 (02:49→07:57)
[2022-02-27] MEDS: NYSTATIN SUSP 500,000 U/5 ML UDC PO SCH (07:49)
[2022-02-27] MEDS: CETIRIZINE HCL 10 MG TABLET PO SCH (07:49)
[2022-02-27] MEDS: COLCHICINE 0.6 MG TAB PO SCH (07:49)
[2022-02-27] MEDS: ASPIRIN 325 MG ECTAB PO SCH (07:49)
[2022-02-27] MEDS: FLUTICASONE/VILANTEROL 200/25MCG 14 PUFFS/INHALER INH SCH (07:50)
--- NOTE | 2022-02-27 11:24 | Discharge Summary ---
Date of Service February 27, 2022 Admission HPI Per Admitting Provider 21 YOF with past medical history of: Asthma, vape user, IUD, acne. Patient is student. She comes to the [facility] today for 6 day history of fevers (2 days), sinus congestion, sore throat, myalgias, nausea with vomiting and loss of appetite. The patient has a room mate that is COVID (+). Patient states that on Thursday with fevers, sore throat and "bumps on her tongue". Patient states that she will get some thrush on her tongue when she is not washing her mouth out and vaping while using her inhalers or whenever she gets sick, however this proceeded with myalgias and worsening of her nausea and vomiting. Her throat pain is sharp and "fiery feeling" and she notes pain on the underside of her jaw where her lymph nodes are. She has been having nose-bleeds over the past 3 days as well and is coughing up clotted blood tinged sputum, she has not been able to produce any sputum for inspection. The patient also noted a rash on her hands and feet over the past 2-3 days that she thought was from her fevers. This rash does not itch nor burn. The rash is flat and patchy, does not feel warm, and blanches. The patient endorses that she has had her meningococcus vaccines, MMR, and Gardasil. Last sexual contact was over a month ago and she has an IUD in place for control. In the [facility] the patient had routine CXR done, CTA of the chest performed, routine labs to include Troponin I. Her Troponin I was elevated to 1.39 with normal ECG and is consistent with a myocarditis, she will be admitted for monitoring for arrhythmia, following viral work-up, ECHO in the morning. Patient COVID test is negative with NAAT and PCR- will place her on isolation precautions still as she has close contact. [place] viral panel sent, Throat culture pending, GAS negative, Monospot with reflex EBV panel pending. Principal Diagnosis viral myocarditis Discharge Exam The patient is awake, alert and oriented 3, well developed and well nourished, normocephalic and atraumatic, lying in bed and in no acute distress. HEENT--PERRL, EOMI, mucous membranes and oropharynx mildly dry Neck--supple. No JVD. No bruits. Thyroid normal, trachea midline, no adenopathy. Heart--normal S1 and S2. No murmurs, rubs or gallops. Lungs--clear bilaterally, no respiratory distress, no accessory muscle use. Abdomen--normal bowel sounds and soft. Mild epigastric and left sided abdominal pain Extremities--no cyanosis or clubbing. No edema. Dermatologic--normal skin turgor, normal color, no abnormal lymph nodes, no rash. Neurologic--cranial nerves II through XII grossly intact. Rheumatologic--normal range of motion. Psychiatric--normal affect. Discharge Data Allergies Allergy/AdvReac Type Severity Reaction Status Date / Time shellfish derived Allergy Severe Difficulty Verified 02/23/22 15:36 Breathing cat dander Allergy Mild Congested Verified 02/23/22 15:36 dog dander Allergy Mild Congested Verified 02/23/22 15:36 grass pollen Allergy Mild Congested Verified 02/23/22 15:36 tree and shrub pollen Allergy Mild Congested Verified 02/23/22 15:36 Consultations 02/23/22 15:07 ED Decision to Admit Stat 02/23/22 19:39 Consult Cardiology Routine 02/25/22 08:11 Consult Pulmonology Routine Ordered Studies 02/23/22 14:12 CT angio chest PE protocol Stat Hospital Course (1) Myocarditis: Viral myocarditis likely responsible for her clinical presentation - Adenovirus on viral PCR which is a common cause of myocarditis - other cultures negative so far - Placed on colchicine and ASA by cardiology, appreciate recs -2 D ECHO was essentially normal, repeat ECHO showed only small pericardiac fluid, but essentially comparable to the last one -Chest pain has resolved (2) Adenovirus positive by PCR: As above (3) Leukocytosis: now resolved (4) Upper respiratory infection: COVID test negative x2 - Biofire with Adenovirus - will place on COVID precautions secondary to close contact - Likely re-test for Covid in morning - await further viral cultures - Nebs PRN - Continue Symbicort and CARIN -Continues to have blood tinged cough, but with improvement -Placed on guanefesin by Pulm (5) Hyponatremia: now resolved (6) Asthma: Well controlled with Symbicort- she rarely has to use her CARIN and has been woken up 1 time in the past year to use her CARIN (7) Rash and nonspecific skin eruption: Viral mediated likely. Is present on palms and soles as well as arms and upper thighs. With some erythema and edema of the fingers and toes Also with pharyngitis and possible strawberry tongue - no meningismus signs - clearing up (8) Enlarged tonsils and adenoids: As above- throat culture pending, Monospot negative, group A strep rapid test negative Secondary to adenovirus She has been taking fluconazole as an outpatient for suspected thrush-oropharynx does not appear to have thrush but can continue nystatin swish and swallow for now On Unasyn in case rapid test was false negative (9) Engages in vaping: patient was adviced to stop Total Time Total Time Spent Total Time Spent (In Minutes): 35 Discharge Plan Discharge Items Patient Disposition: Home - Self-Care Reason For Visit: SHORTNESS OF BREATH,FEVER,SKIN RASH,COVID EXPOSURE Discharge Diagnosis: viral myocarditis Condition on Discharge: Good Activity: As commented below Activity Comment: avoid strenous exercise 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 Veronica) Dom Veronica MD [Physician] - 03/06/22 1:00 pm (This appointment is for an echocardiogram.) [facility] [Primary Care Provider] - Diet: Regular Addtl Attending Provider Instructions: please make appointment to follow up with your precinct commanding officer Pending Studies at Discharge: No Stand-Alone Forms: My [facility] [employer], Smoking Cessation Medications and DC Order Prescriptions: New nystatin 100,000 unit/mL Suspension 5 ml PO QID 5 Days Qty: 100 RF: 0 colchicine [Colcrys] 0.6 mg Tablet 0.6 mg PO QAM 90 Days Qty: 90 RF: 0 cephalexin 250 mg capsule 250 mg PO BID 7 Days Qty: 14 RF: 0 Continued isotretinoin [Claravis] 40 mg capsule 40 mg PO BID RF: 0 cetirizine [Zyrtec] 10 mg Tablet 10 mg PO DAILY RF: 0 montelukast 10 mg tablet 10 mg PO QPM RF: 0 budesonide-formoterol 160-4.5 mcg/actuation HFA aerosol inhaler 2 puff INHALATION QAM RF: 0 Kyleena 17.5 mcg/24 hrs (5 yrs) 19.5 mg Intrauterine Device 1 device INTRAUTERINE RF: 0 Discontinued fluconazole 100 mg tablet 100 mg PO UD RF: 0 Discharge Orders: Discharge Order (Routine); Ordered 02/27/22 Ordered By: Pro Markham Admission Data Admit Date/Time: 02/23/22 16:55 Attending Provider: Pro Markham Admit Provider: Constance Richard Primary Care Provider: [facility] Other Providers: Constance Richard ; Carloz Ryan ; Vernon Flores Other Interventions: Discharge Summary Assessment (RN) Last Done: 02/27/22 10:38 Coding Level of Care Code D/C DAY MANAGEMENT >30 MINS Diagnoses Myocarditis I40.9 Chronicity: acute Myocarditis type: unspecified Adenovirus positive by PCR B34.0 Leukocytosis D72.829 Upper respiratory infection J06.9 URI type: unspecified URI Hyponatremia E87.1 Asthma J45.909 Rash and nonspecific skin eruption R21 Enlarged tonsils and adenoids J35.3 Engages in vaping Z72.89 Time Spent (min) 35
== END 2022-02-27 11:17 | disposition home or self-care (01) | DRG 315 ==
LOC: ED 12:57 → SUATTDRO 16:55 → 2W 16:55
DX: I40.0 Infective myocarditis; J45.909 Unspecified asthma, uncomplicated; U07.0 Vaping-related disorder; N39.0 Urinary tract infection, site not specified; B97.0 Adenovirus as the cause of diseases classified elsewhere; R21 Rash and other nonspecific skin eruption; E87.1 Hypo-osmolality and hyponatremia; I42.9 Cardiomyopathy, unspecified; E87.6 Hypokalemia; R00.0 Tachycardia, unspecified; I31.9 Disease of pericardium, unspecified; J06.9 Acute upper respiratory infection, unspecified